=== PATIENT | male | born 1950 | race Caucasian/White ===

== ENCOUNTER 2023-12-31 10:39 | Outpatient (REF) | payer MEDICARE, SELFPAY ==
--- NOTE | ~2023-12-31 | XR_ITS ---
EXAMINATION: XR KNEE, RIGHT CLINICAL INFORMATION: Knee pain COMPARISON: None available. TECHNIQUE: Three views of the right knee. FINDINGS: Severe medial compartment arthritis, joint space loss, osteophytes, sclerosis. Arthritis to lesser degree in the lateral and patellofemoral compartments. No acute fracture or dislocation. Small suprapatellar joint fluid. No suspicious soft tissue calcification. Study presented for dictation on 01/16/2028 XR/XR knee RT 3V IMPRESSION: Tricompartment osteoarthritis. Severe medial compartment arthritis.
== END 2023-12-31 10:40 | disposition home or self-care (01) ==
LOC: HO.HOSX 10:39
PROVIDERS: Visit Provider Orthopaedic Surgery
DX: M17.11 Unilateral primary osteoarthritis, right knee (principal)
CPT/HCPCS: 73562; 99212

== ENCOUNTER 2023-12-31 11:17 | Outpatient (AMB) | payer MEDICARE, SELFPAY ==
[2023-12-31 11:31] VITALS: BMI 31.0
--- NOTE | 2023-12-31 11:31 | MHC.OFFVIS ---
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 The patient describes his pain as sharp and severe in nature. His pain has gotten worse over the last 5 years in spite of continued non operative treatments. The patient states that he was scheduled to undergo right total knee replacement surgery in 2019 but his surgery was canceled because of the COVID epidemic. He has had multiple cortisone injections as well as viscosupplementation injections. The most recent set of injections gave him minimal relief. He has tried Tylenol and anti-inflammatory medicines which gave him only mild relief. The patient has difficulty walking even short distances because of his pain. He has tried physical therapy which aggravated his pain. At this point his right knee pain is interfering with his activities of daily living and his ability to sleep well through the night. Allergies No Known Allergies Allergy (Verified 12/31/23 11:32) Medication List - Last Reconciled 12/31/23 by Compa Galaviz MD allopurinol 300 mg PO DAILY finasteride 5 mg PO DAILY losartan 75 mg PO DAILY metformin 500 mg PO BID metoprolol succinate ER 12.5 mg PO DAILY omeprazole 40 mg PO DAILY pravastatin 80 mg PO BEDTIME tamsulosin 0.4 mg PO BEDTIME Physical Exam Vital Signs: BMI result Body Mass Index 31.0 Const Other: Well-nourished well-developed very friendly male awake alert and oriented x3 in no acute distress Extrem Other: Bilateral lower extremity examination shows good capillary refill, no skin lesions noted, normal sensation light touch Right knee examination shows a minimal effusion, palpable crepitus with range of motion, pain with range of motion, range of motion from -3 degrees to 115 degrees, no instability Results Reviewed Results Reviewed: X-rays of the patient's right knee show end-stage degenerative joint disease with grade 4 [id number] arthritis in the medial compartment, subchondral sclerosis, osteophyte formation, no acute bony abnormalities Assessment & Plan Assessment & Plan (1) Osteoarthritis of right knee: Code(s): M17.11 - Unilateral primary osteoarthritis, right knee Category: Medical Plan Mr. Cormier presents with progressively worsening right knee pain due to end-stage degenerative joint disease. I had a lengthy discussion with the patient regarding the treatment options. At this point he has failed continued non operative treatments. The risks and benefits of right total knee replacement surgery were discussed at length with the patient. The patient wishes to proceed with surgery. He will be scheduled for next available date. I will see him back 1 week prior to his surgery to answer any final questions that he might have. Feel free to call me at any time should questions regarding his orthopedic management arise. I spent 20 minutes in reviewing the patient's records and imaging studies, seeing the patient and documenting in the medical record. Orders: Orders XR knee RT 3V Today M25.561 - Pain in right knee Coding Level of Care Code Est Pt Level 3 (35404) Diagnoses Osteoarthritis of right knee M17.11
== END 2023-12-31 11:57 | disposition home or self-care (01) ==
PROVIDERS: PCP Internal Medicine; Visit Provider Orthopaedic Surgery
DX: M17.11 Unilateral primary osteoarthritis, right knee (principal)
CPT/HCPCS: 99214

== ENCOUNTER 2024-01-02 11:47 | Outpatient (REF) | payer MEDICARE, SELFPAY | END 2024-01-02 11:48 | disposition home or self-care (01) | LOC: HO.HOSX 11:47 | PROVIDERS: Visit Provider Orthopaedic Surgery | DX: Z13.89 Encounter for screening for other disorder (principal) ==

== ENCOUNTER → 2024-01-14 08:46 | Outpatient (BNVA) | payer MEDICARE, SELFPAY | PROVIDERS: PCP Internal Medicine | DX: Z01.818 Encounter for other preprocedural examination (principal) ==

== ENCOUNTER 2024-01-31 | Outpatient (REF) | payer MEDICARE, SELFPAY ==
[2024-01-31 10:14] VITALS: BP 146/88; PULSE 81; RESP 18; O2SAT 97; BMI 31.0
[2024-01-31 12:10] LABS: MRSA Nasal PCR NEGATIVE (Negative); SA Nasal PCR NEGATIVE (Negative)
== END 2024-01-31 00:01 | disposition home or self-care (01) ==
LOC: HO.PAT
PROVIDERS: Physician Assistant; PCP Internal Medicine; Visit Provider Orthopaedic Surgery
DX: Z01.818 Encounter for other preprocedural examination (principal); M17.11 Unilateral primary osteoarthritis, right knee
CPT/HCPCS: 86850; 86900; 86901; 87640; 87641

== ENCOUNTER 2024-05-20 11:23 | Outpatient (AMB) | payer MEDICARE, SELFPAY ==
--- NOTE | 2024-05-20 11:46 | MHC.OFFVIS ---
Vital Signs 05/20/24 11:48 Height 5 ft 8 in Weight 200 lb BMI 30.4 Intake Visit Reasons: New Prob - left knee pain Intake Note: Bassem is a 73 year old male who presents with complaints of pain along the lateral aspect of his left knee. The patient states that he aggravated his knee recently while sitting up from his reclining chair. He pushed back with his left foot and had acute onset of pain. He has tried Tylenol and topical creams which gave him mild relief. Allergies No Known Allergies Allergy (Verified 05/20/24 11:48) Medication List - Last Reconciled 05/20/24 by Compa Galaviz MD allopurinol 300 mg PO QPM aspirin 81 mg PO QAM chlorthalidone 12.5 mg PO QAM finasteride 5 mg PO QAM losartan 75 mg PO QAM metformin ER 1,000 mg PO BID metoprolol succinate ER 25 mg PO QPM multivitamin 1 tab PO QAM omeprazole 40 mg PO QAM pravastatin 80 mg PO BEDTIME semaglutide (Ozempic) mg subcut tamsulosin 0.4 mg PO BEDTIME walker Folding front wheeled walker [facility] Medical History (Updated 05/20/24 @ 12:37 by Compa Galaviz MD) BPH (benign prostatic hyperplasia) Renal calculi Osteoarthritis Diabetes GERD (gastroesophageal reflux disease) Elevated cholesterol HTN (hypertension) Surgical History (Updated 01/31/24 @ 10:09 by Annabelle Tee RN) Hx of lithotripsy History of surgical removal of pilonidal cyst History of appendectomy Hx of right inguinal hernia repair History of esophagogastroduodenoscopy (EGD) H/O colonoscopy Social History Are you a primary critical care registered nurse to a significant other at home: No Do you presently have visiting nurse or other home services: No Comment: occasionally uses cane Patient Tobacco Use Status: Former Tobacco user Tobacco use type: Cigarette Years Smoked: 6 Physical Exam Vital Signs: BMI result Body Mass Index 30.4 Const Other: Well-nourished well-developed very friendly male awake alert and oriented x3 in no acute distress Extrem Other: Left knee examination shows full range of motion when compared to his right knee, minimal crepitus with range of motion, tenderness over his iliotibial band, mild discomfort with resisted knee flexion Assessment & Plan Assessment & Plan (1) Left knee pain: Code(s): M25.562 - Pain in left knee Category: Medical Plan Mr. Cormier presents with pain along the lateral aspect of his left knee most likely due to iliotibial band syndrome. I had a lengthy discussion with the patient regarding the treatment options. We will hold off on a cortisone injection at this time. I did give him a prescription for a Medrol Dosepak. Activity modifications were discussed at length with the patient. Will follow up with me on an as-needed basis should his symptoms not plateau at an unacceptable level over the next few months. Feel free to call me at any time should questions regarding his orthopedic management arise. I spent 21 minutes in reviewing the patient's records and imaging studies, seeing the patient and documenting in the medical record. Medications: New methylprednisolone (Medrol (Danny)) PO PER PKG DIR 21 ea 0RF Coding Level of Care Code Est Pt Level 3 (28037) Complex EM visit Add On G2211 Diagnoses Left knee pain M25.562
[2024-05-20 11:48] VITALS: BMI 30.4
== END 2024-05-20 12:34 | disposition home or self-care (01) ==
PROVIDERS: PCP Internal Medicine; Visit Provider Orthopaedic Surgery
DX: M25.562 Pain in left knee (principal)
CPT/HCPCS: 99213; G2211

== ENCOUNTER → 2024-05-20 11:23 | Outpatient (BNVA) | payer MEDICARE, SELFPAY | PROVIDERS: PCP Internal Medicine; Visit Provider Orthopaedic Surgery | DX: M25.562 Pain in left knee (principal) | CPT/HCPCS: 99212 ==

== ENCOUNTER → 2024-07-29 10:16 | Outpatient (BNVA) | payer MEDICARE, SELFPAY | PROVIDERS: PCP Internal Medicine | DX: Z01.818 Encounter for other preprocedural examination (principal) ==

== ENCOUNTER 2024-08-21 07:49 | Outpatient (AMB) | payer MEDICARE, SELFPAY ==
--- NOTE | 2024-08-21 07:54 | MHC.OFFVIS ---
Vital Signs 08/21/24 07:55 Height 5 ft 8 in Weight 200 lb BMI 30.4 Intake Visit Reasons: Pre-Op: R TKA w/ 08/25/24 Intake Note: Bassem gann a 73 yr old male who presents today with complaints of progressively worsening right knee pain. The patient describes his pain as sharp and severe in nature. His pain has gotten worse over the last 5 years in spite of continued non operative treatments. The patient states that he was scheduled to undergo right total knee replacement surgery in 2019 but his surgery was canceled because of the COVID epidemic. He has had multiple cortisone injections as well as viscosupplementation injections. The most recent set of injections gave him minimal relief. He has tried Tylenol and anti-inflammatory medicines which gave him only mild relief. The patient has difficulty walking even short distances because of his pain. He has tried physical therapy which aggravated his pain. At this point his right knee pain is interfering with his activities of daily living and his ability to sleep well through the night. Allergies No Known Allergies Allergy (Verified 08/21/24 07:54) Medication List - Last Reconciled 08/21/24 by Compa Galaviz MD allopurinol 300 mg PO QPM aspirin 81 mg PO QAM chlorthalidone 12.5 mg PO QAM finasteride 5 mg PO QAM losartan 75 mg PO QAM metformin ER 1,000 mg PO BID metoprolol succinate ER 25 mg PO QPM multivitamin 1 tab PO QAM omeprazole 40 mg PO QAM pravastatin 80 mg PO BEDTIME semaglutide (Ozempic) 2 mg subcut QWEEK tamsulosin 0.4 mg PO BEDTIME walker Folding front wheeled walker walker Folding front wheeled walker [facility] Medical History Schatzki ring of distal esophagus NAFLD (nonalcoholic fatty liver disease) BPH (benign prostatic hyperplasia) Renal calculi Osteoarthritis Diabetes GERD (gastroesophageal reflux disease) Elevated cholesterol HTN (hypertension) Surgical History (Updated 01/31/24 @ 10:09 by Annabelle Tee RN) Hx of lithotripsy History of surgical removal of pilonidal cyst History of appendectomy Hx of right inguinal hernia repair History of esophagogastroduodenoscopy (EGD) H/O colonoscopy Social History Are you a primary animal care specialist to a significant other at home: No Do you presently have visiting nurse or other home services: No Comment: aware of trip hazard Patient Tobacco Use Status: Former Tobacco user Tobacco use type: Cigarette Years Smoked: 6 Physical Exam Vital Signs: BMI result Body Mass Index 30.4 Const Other: Well-nourished well-developed very friendly male awake alert and oriented x3 in no acute distress Extrem Other: Bilateral lower extremity examination shows good capillary refill, no skin lesions noted, normal sensation light touch Right knee examination shows a minimal effusion, palpable crepitus with range of motion, pain with range of motion, range of motion from -3 degrees to 115 degrees, no instability Results Reviewed Results Reviewed: X-rays of the patient's right knee show end-stage degenerative joint disease with grade 4 [id number] arthritis, subchondral sclerosis, no acute bony abnormalities Assessment & Plan Assessment & Plan (1) Osteoarthritis of right knee: Code(s): M17.11 - Unilateral primary osteoarthritis, right knee Category: Medical Plan Mr. Cormier presents with progressively worsening right knee pain due to end-stage degenerative joint disease. At this point the patient has failed continued non operative treatments. The risks and benefits of right total knee replacement surgery were discussed at length with the patient. The patient wishes to proceed with surgery. sales representative facility services will be consulted following his surgery for home physical therapy and nursing. The patient will follow-up as instructed. Feel free to call me at any time should questions regarding his orthopedic management arise. I spent 20 minutes in reviewing the patient's records and imaging studies, seeing the patient and documenting in the medical record. Coding Level of Care Code Est Pt Level 3 (30918) Complex EM visit Add On G2211 Diagnoses Osteoarthritis of right knee M17.11
[2024-08-21 07:55] VITALS: BMI 30.4
== END 2024-08-21 08:20 | disposition home or self-care (01) ==
PROVIDERS: PCP Internal Medicine; Visit Provider Orthopaedic Surgery
DX: M17.11 Unilateral primary osteoarthritis, right knee (principal)
CPT/HCPCS: 99213

== ENCOUNTER 2024-08-21 07:49 | Outpatient (REF) | payer MEDICARE, SELFPAY ==
--- OUTSIDE RECORDS SUMMARY | 2024-08-21 09:07 | XMS_ITS | Clinical Summary ---
Author Organization [address] Address [address] [place] [phone] Phone Care Team Providers Care Imaging Technologist Name Role Phone Oscar Quinn DO Primary Care Provider [phone] Surgical History Surgery Date Site/Laterality Comments APPENDECTOMY PROCEDURE:APPENDECTOMY HERNIA REPAIR PROCEDURE:HERNIA REPAIR PILONIDAL CYST DRAINAGE PROCEDURE:PILONIDAL CYST DRAINAGE NEPHROSTOMY PROCEDURE:NEPHROSTOMY LITHOTRIPSY PROCEDURE:LITHOTRIPSY Medical History Medical History Date Comments Hypertension DX:Hypertension Family History Medical History Relation Name Comments Heart disease Father Hypertension Father Cancer Mother Relation Name Status Comments Father Mother Social History Tobacco Use Types Packs/Day Years Used Date Smoking Tobacco: Never Assessed Sex and Gender Information Value Date Recorded Sex Assigned at Not on file Legal Sex Male 1:25 AM EST Gender Identity Not on file Sexual Orientation Not on file Obstetrics History Plan of Treatment Health Maintenance Due Date Last Done Comments DTaP,Tdap,and Td Vaccines (1 - Tdap) 1971 Pneumococcal Vaccine: 50+ Years (1 of 2 - PCV) 1971 Zoster Vaccines (1 of 2) 2002 Colorectal Cancer Screening: Colonoscopy 05/28/2022 Depression Screening 05/28/2022 Falls Risk Assessment 05/28/2022 Hepatitis C Screening 05/28/2022 Medicare Annual Wellness Visit 05/28/2022 Social Influencers of Health Screening 05/28/2022 COVID-19 Vaccine (3 - 2023-2 5 season) 2024 04/03/2022, 04/18/2021 Hypertension/CHF/CAD Annual BMP Blood Test 07/28/2025 07/28/2024, 05/12/2024 RSV Immunization Patients 60 + Years Old (1 - 1-dose 75+ series) 2027 Cholesterol Screening (Lipid Panel) 05/12/2029 05/12/2024 Influenza Vaccine Completed 03/12/2024, 07/12/2023, 04/17/2022 HIB Vaccines Aged Out No longer eligi ble based on patient's age to complete this topic HPV Vaccines Aged Out No longer eligi ble based on patient's age to complete this topic Hepatitis A Vaccines Aged Out No long er eligible based on patient's age to complete this topic Hepatitis B Vaccines Aged Out No long er eligible based on patient's age to complete this topic IPV Vaccines Aged Out No longer eligi ble based on patient's age to complete this topic MMR Vaccines Aged Out No longer eligi ble based on patient's age to complete this topic Meningococcal ACWY Vaccine Aged Out N o longer eligible based on patient's age to complete this topic Meningococcal B Vacine Aged Out No lo nger eligible based on patient's age to complete this topic RSV Immunization Patients Under 20 months Aged Out No longer eligible b ased on patient's age to complete this topic Varicella Vaccines Aged Out No longer eligible based on patient's age to complete this topic Procedures Procedure Name Priority Date/Time Associated Diagnosis Comments CBC WITH AUTO DIFFERENTIAL Routine 07/28/2024 11:39 AM EST Pre-op evaluation History of total knee arthroplasty, right PROTHROMBIN TIME WITH INR Routine 07/28/2024 11:39 AM EST Pre-op evaluation History of total knee arthroplasty, right HEMOGLOBIN A1C Routine 07/28/2024 11:39 AM EST Pre-op evaluation History of total knee arthroplasty, right Abnormal finding of blood chemistry, unspecified COMPREHENSIVE METABOLIC PANEL Routine 07/28/2024 11:39 AM EST Pre-op evaluation History of total knee arthroplasty, right CBC AND DIFFERENTIAL Routine 07/28/2024 11:39 AM EST Pre-op evaluation History of total knee arthroplasty, right LIPID PANEL WITH REFLEX TO DIRECT LDL Routine 05/12/2024 8:45 AM EST Laboratory tests ordered as part of a complete physical exam (CPE) HTN (hypertension) DM (diabetes mellitus) (CMS/HCC) HLD (hyperlipidemia) from Last 3 Months or Most Recently Relevant to Health Maintenance Results * (ABNORMAL) CBC auto differential (07/28/2024 11:39 AM EST) [facility] WBC 10.5 4.8 - 10.8 K/mcL LAB HEMETOLOGY METHOD 07/28/2024 2:44 PM [facility] RBC 4.20(L) 4.50 - 5.50 M/mcL LAB HEMETOLOGY METHOD 07/28/2024 2:44 PM [facility] Hemoglobin 13.8 13.5 - 17.5 g/dL LAB HEMETOLOGY METHOD 07/28/2024 2:44 PM [facility] Hematocrit 41.4(L) 42.0 - 54.0 % LAB HEMETOLOGY METHOD 07/28/2024 2:44 PM [facility] MCV 99.0(H) 79.0 - 98.0 FL LAB HEMETOLOGY METHOD 07/28/2024 2:44 PM [facility] MCH 33.0(H) 27.0 - 32.0 pcg LAB HEMETOLOGY METHOD 07/28/2024 2:44 PM [facility] MCHC 33.3 32.0 - 37.0 g/dL LAB HEMETOLOGY METHOD 07/28/2024 2:44 PM [facility] RDW 13.0 11.0 - 15.0 % LAB HEMETOLOGY METHOD 07/28/2024 2:44 PM [facility] Platelets 241 130 - 400 K/mcL LAB HEMETOLOGY METHOD 07/28/2024 2:44 PM [facility] MPV 9.3 7.0 - 11.0 FL LAB HEMETOLOGY METHOD 07/28/2024 2:44 PM [facility] NRBC 0.0 <1.0 % LAB HEMETOLOGY METHOD 07/28/2024 2:44 PM [facility] NRBC Absolute 0.00 <0.10 K/mcL LAB HEMETOLOGY METHOD 07/28/2024 2:44 PM [facility] Neutrophils Relative 71.8 % LAB HEMETOLOGY METHOD 07/28/2024 2:44 PM [facility] Lymphocytes Relative 19.9 % LAB HEMETOLOGY METHOD 07/28/2024 2:44 PM [facility] Monocytes Relative 7.2 % LAB HEMETOLOGY METHOD 07/28/2024 2:44 PM [facility] Eosinophils Relative 0.4 % LAB HEMETOLOGY METHOD 07/28/2024 2:44 PM [facility] Basophils Relative 0.2 % LAB HEMETOLOGY METHOD 07/28/2024 2:44 PM [facility] Immature Granulocytes Relative 0.5 % LAB HEMETOLOGY METHOD 07/28/2024 2:44 PM [facility] Neutrophils Absolute 7.53(H) 1.50 - 7.00 K/mcL LAB HEMETOLOGY METHOD 07/28/2024 2:44 PM [facility] Lymphocytes Absolute 2.09 1.00 - 5.00 K/mcL LAB HEMETOLOGY METHOD 07/28/2024 2:44 PM [facility] Monocytes Absolute 0.76 0.20 - 1.00 K/mcL LAB HEMETOLOGY METHOD 07/28/2024 2:44 PM [facility] Eosinophils Absolute 0.04 0.00 - 0.50 K/mcL LAB HEMETOLOGY METHOD 07/28/2024 2:44 PM [facility] Basophils Absolute 0.02 0.00 - 0.20 K/[facility] LAB HEMETOLOGY METHOD 07/28/2024 2:44 PM EST [facility] Immature Granulocytes Absolute 0.05(H) 0.00 - 0.03 K/[facility] LAB HEMETOLOGY METHOD 07/28/2024 2:44 PM [facility] Blood Venous blood specimen / Unknown Venipuncture / Unknown 07/28/2024 11:39 AM EST 07/28/2024 11:39 AM EST [employer] LAB BLOOD ORDERABLES Final Resul t Performing Organization Address [facility]/ZIP Co de Phone Number [facility] [address] [place] [address], [place] [phone] * (ABNORMAL) Prothrombin time with INR (07/28/2024 11:39 AM EST) Pathologist [facility] Protime 9.8(L) 10.6 - 13.9 sec LAB COAGULATION METHOD 07/28/2024 2:53 PM [facility] INR 0.8 LAB COAGULATION METHOD 07/28/2024 2:53 PM [facility] Blood Venous blood specimen / Unknown Venipuncture / Unknown 07/28/2024 11:39 AM EST 07/28/2024 11:39 AM EST [employer] LAB BLOOD ORDERABLES Final Resul t Performing Organization Address City/[facility]/ZIP Co de Phone Number [facility] [address] [place] [address], [place] [phone] * (ABNORMAL) Hemoglobin A1c (07/28/2024 11:39 AM EST) Pathologist [facility] Hemoglobin A1C 7.2(H) <6.5 % LAB CHEMISTRY METHOD 07/28/2024 9:47 PM EST [facility] Mean Bld Glu Estim. 160 mg/dL LAB CHEMISTRY METHOD 07/28/2024 9:47 PM [facility] Blood Venous blood specimen / Unknown Venipuncture / Unknown 07/28/2024 11:39 AM EST 07/28/2024 11:39 AM EST us [employer] [employer] LAB BLOOD ORDERABLES Final Resul t [facility] [address] [place] [address], * (ABNORMAL) Comprehensive metabolic panel (07/28/2024 11:39 AM EST) Sodium 137 133 - 145 mmol/L LAB CHEMISTRY METHOD 07/28/2024 5:21 PM [facility] Potassium 4.1 3.5 - 5.5 mmol/L LAB CHEMISTRY METHOD 07/28/2024 5:21 PM [facility] Chloride 103 96 - 110 mmol/L LAB CHEMISTRY METHOD 07/28/2024 5:21 PM [facility] CO2 26 21 - 32 mmol/L LAB CHEMISTRY METHOD 07/28/2024 5:21 PM [facility] Anion Gap 8 3 - 11 LAB CHEMISTRY METHOD 07/28/2024 5:21 PM [facility] Glucose 179(H) 70 - 100 mg/dL LAB CHEMISTRY METHOD 07/28/2024 5:21 PM [facility] BUN 29(H) 5 - 25 mg/dL LAB CHEMISTRY METHOD 07/28/2024 5:21 PM [facility] Creatinine 1.47(H) 0.70 - 1.30 mg/dL LAB CHEMISTRY METHOD 07/28/2024 5:21 PM [facility] eGFR 50(L) >=60 mL/min/1. 73m2 LAB CHEMISTRY METHOD 07/28/2024 5:21 PM [facility] Comment:Calculation based on the??Chronic Kidney Disease Epidemiology Collaboration (CKD-EPI) equation refit??without adjustment for race. BUN/Creatinine Ratio 19.7 LAB CHEMISTRY METHOD 07/28/2024 5:21 PM [facility] Calcium 10.3 8.5 - 10.5 mg/dL LAB CHEMISTRY METHOD 07/28/2024 5:21 PM [facility] AST (SGOT) 15 10 - 42 unit/L LAB CHEMISTRY METHOD 07/28/2024 5:21 PM [facility] ALT (SGPT) 29 10 - 60 unit/L LAB CHEMISTRY METHOD 07/28/2024 5:21 PM [facility] Alkaline Phosphatase 70 42 - 121 unit/L LAB CHEMISTRY METHOD 07/28/2024 5:21 PM [facility] Total Protein 6.9 6.0 - 8.0 g/dL LAB CHEMISTRY METHOD 07/28/2024 5:21 PM [facility] Albumin 4.2 3.2 - 5.0 g/dL LAB CHEMISTRY METHOD 07/28/2024 5:21 PM [facility] Total Bilirubin 0.7 0.0 - 1.4 mg/dL LAB CHEMISTRY METHOD 07/28/2024 5:21 PM [facility] Blood Venous blood specimen / Unknown Venipuncture / Unknown 07/28/2024 11:39 AM EST 07/28/2024 11:39 AM EST [facility] [employer] LAB BLOOD ORDERABLES Final Resul t [facility] [address] [place] [address], * (ABNORMAL) Lipid panel with reflex to direct LDL (05/12/2024 8:45 AM EST) Cholesterol 146 0 - 200 mg/dL LAB CHEMISTRY METHOD 05/12/2024 12:38 PM [facility] Triglycerides 241(H) 0 - 150 mg/dL LAB CHEMISTRY METHOD 05/12/2024 12:38 PM [facility] HDL 51 >=40 mg/dL LAB CHEMISTRY METHOD 05/12/2024 12:38 PM [facility] LDL Calculated 47 0 - 100 mg/dL LAB CHEMISTRY METHOD 05/12/2024 12:38 PM [facility] VLDL Cholesterol Lg 48.2 mg/dL LAB CHEMISTRY METHOD 05/12/2024 12:38 PM [facility] Non HDL Chol. (LDL+VLDL) 95 <145 mg/dL LAB CHEMISTRY METHOD 05/12/2024 12:38 PM [facility] Chol/HDL Ratio 2.9 0.0 - 4.4 LAB CHEMISTRY METHOD 05/12/2024 12:38 PM [facility] Blood Venous blood specimen / Unknown Venipuncture / Unknown 05/12/2024 8:45 AM EST 05/12/2024 8:45 AM EST Oscar Quinn DO LAB BLOOD ORDERABLES Final Re sult [facility]) [facility] [address] [place] [address], from Last 3 Months or Most Recently Relevant to Health Maintenance Insurance MEDICARE Care Teams Imaging Technologist Relationship Specialty Start Date End Date Oscar Quinn DO [address] [place] [phone] PCP - General Internal Medicine 10/01/18
--- OUTSIDE RECORDS SUMMARY | 2024-08-21 09:07 | XMS_ITS | Clinical Summary ---
Author Organization [facility] Address [address] [place] [address] Care Team Providers Care Office Asst Name Role Phone Oscar Quinn DO Primary Care Provider [phone] Allergies No known active allergies Medications Medication Sig Dispensed Refills Start Date End Date Status amLODIPine (NORVASC) tablet 10 mg 0 10/03/2018 Active finasteride (PROSCAR) 5 MG tablet 0 10/23/2018 Active losartan (COZAAR) tablet 25 mg 0 10/03/2018 Active metoprolol succinate (TOPROL-XL) 24 hr tablet 25 mg 0 10/03/2018 Active pravastatin (PRAVACHOL) tablet 80 mg 0 10/23/2018 Active tamsulosin (FLOMAX) 0.4 MG CAPS 0 10/23/2018 Active PEG 9162-WXt-VbXhp-NaCl-NaSulf (PEG 3350/ELECTROLYTES) 240 g SOLR 0 10/09/2018 Active Active Problems Problem Noted Date Diagnosed Date Shoulder impingement, right 05/13/2019 Lateral epicondylitis of right elbow 01/14/2019 Primary osteoarthritis of right knee 12/24/2018 Chronic pain of right knee 12/24/2018 Family History Medical History Relation Name Comments Heart disease Father Hypertension Father Cancer Mother Relation Name Status Comments Father Mother Social History Tobacco Use Types Packs/Day Years Used Date Smoking Tobacco: Never Assessed Sex and Gender Information Value Date Recorded Sex Assigned at Not on file Gender Identity Not on file Sexual Orientation Not on file Job Start Date Occupation Industry Not on file Not on file Not on file Last Filed Vital Signs Vital Sign Reading Time Taken Comments Blood Pressure - - Pulse - - Temperature - - Respiratory Rate - - Oxygen Saturation - - Inhaled Oxygen Concentration - - Weight 95.3 kg (210 lb) 01/14/2019 10:38 AM EDT Height 172.7 cm (5' 8 ) 01/14/2019 10:38 AM EDT Body Mass Index 31.93 01/14/2019 10:38 AM EDT Plan of Treatment Health Maintenance Due Date Last Done Comments Hepatitis C Screening 1952 COVID-19 Vaccine (#1) 01[birth year]11/1951 Depression Screening 1964 BMI Counseling 1970 Preventative Health Evaluation 1970 DTap / Tdap / Td (1 - Tdap) 1971 Colon Cancer Screening (Colonoscopy) 1997 Shingrix-Zoster Vaccine (1 of 2) 2002 Fall Risk Assessment 2017 Pneumococcal Vaccine (1 of 1 - PCV) 2017 Influenza Vaccine (#1) 2024 RSV Adult > 60+ Yrs or Pregn ant (1 - 1-dose 75+ series) 2027 Hepatitis B Vaccines Aged Out No long er eligible based on patient's age to complete this topic RSV Ped < 20 months Aged Out No longe r eligible based on patient's age to complete this topic Care Teams Office Asst Relationship Specialty Start Date End Date Oscar Quinn DO [address] [place] [address] [address] [place] [address] PCP - General Internal Medicine 10/01/18
--- OUTSIDE RECORDS SUMMARY | 2024-08-21 09:07 | XMS_ITS | Clinical Summary ---
Author Organization [facility] Address [address] [phone] Phone Care Team Providers Care Brown Stock Washer Name Role Phone Oscar Quinn DO Primary Care Provider [phone] Allergies No known active allergies Medications Aspirin Buf,CaCarb-MgCa rb-MgO, 81 MG tablet Take 1 tablet by mouth 1 (one) time each day Active Cholecalciferol (Vitamin D3) 25 MCG (1000 UT) capsule Take 25 mcg by mouth 2 Active Multiple Vitamin (MULTIVITAMIN ADULT PO) Daily, 0 Refills, Maintenance, 04/12/22 11:37:00 EDT, Partial fill upon patient request if the prescription is for a schedule II opioid drug. 2 Active tamsulosin (FLOMAX) 0.4 MG 24 hr capsule Take 0.4 mg by mouth 9 Active metFORMIN XR (GLUCOPHAGE-XR) 750 MG 24 hr tablet 3 Active pravastatin (PRAVACHOL) 80 MG tablet 3 Active metoprolol succinate XL (TOPROL XL) 25 MG 24 hr tablet 3 Active finasteride (PROSCAR) 5 MG tablet 3 Active chlorthalidone 25 MG tablet Take 0.5 tablets (12.5 mg total) by mouth 1 (one) time each day 45 tablet 3 3 Active losartan (Cozaar) 25 MG tablet Take 3 tablets (75 mg total) by mouth 1 (one) time each day 270 tablet 3 4 11/14/19 25 Active Active Problems Problem Noted Date Diagnosed Date Chronic kidney disease, stage 2 (mild) 3 Essential (primary) hypertension 02/12/2023 Blood in urine 02/09/2023 02/09/2023 Nocturia 02/09/2023 02/09/2023 Obese class I 02/09/2023 02/09/2023 Renal stone 02/09/2023 02/09/2023 Disorder of shoulder 05/13/2019 02/09/2023 Lateral epicondylitis of right elbow 01/14/2019 02/09/2023 Pain of knee region 12/24/2018 02/09/2023 Primary osteoarthritis of right knee 12/24/2018 02/09/2023 Family History Medical History Relation Comments Heart disease Father Hypertension Father Cancer Mother colorectal Relation Status Comments Father Unknown Mother Social History Tobacco Use Types Packs/Day Years Used Date Smoking Tobacco: Former Comments:Smoking History Inf o:Every day Alcohol Use Standard Drinks/Week Comments No 0 (1 standard drink = 0.6 oz pur e alcohol) Sex and Gender Information Value Date Recorded Sex Assigned at Not on file Legal Sex Male 4:51 PM EST Gender Identity Not on file Sexual Orientation Not on file Last Filed Vital Signs Vital Sign Reading Time Taken Comments Blood Pressure 156/70 05/14/2024 2:30 PM EST Pulse 101 05/14/2024 2:30 PM EST Temperature - - Respiratory Rate - - Oxygen Saturation 98% 11/14/2023 12:58 PM EDT Inhaled Oxygen Concentration - - Weight 91.4 kg (201 lb 6.4 oz) 05/14/2024 2:30 P M EST Height - - Body Mass Index - - Plan of Treatment Upcoming Encounters Date Type Department Care Team (Late st Contact Info) Description 11/10/2024 2:00 PM EDT Office Visit [facility] [address] [phone] Pancho Mars MD [address] [phone] Health Maintenance Due Date Last Done Comments Pneumococcal Vaccine: 65+ Ye ars (1 of 2 - PCV) 1958 Colorectal Cancer Screening: Annual FOBT 2001 Colorectal Cancer Screening: Colonoscopy 2001 Colorectal Cancer Screening: Sigmoidoscopy 2001 Influenza Vaccine (#1) 2024 Hepatitis B Vaccine Aged Out No longe r eligible based on patient's age to complete this topic Procedures Procedure Name Priority Date/Time Associated Diagnosis Comments LITHOLINK KIDNEY STONE URINE PANEL Routine 06/16/2024 9:05 AM EST Chronic kidney disease, not otherwise specified Renal stone from Last 3 Months Results * (ABNORMAL) Litholink Kidney Stone Urine Panel, 24 Hour (06/16/2024 9:05 AM EST) Cystine, Ur CANCELED [facility] Comment: Test not performed. Previous test results on file. Result canceled by the ancillary. Urine Volume (Preservative) 1,390 500 - 4,000 mL/24 hr [facility] Calcium Oxalate 9.97 6.00 - 10.00 [facility] Calcium, 24H Urine 144 <250 mg/24 hr [facility] Oxalate, 24H Ur 49(H) 20 - 40 mg/24 hr [facility] Citrate, 24H Ur 449(L) >450 mg/24 hr [facility] Calcium Phosphate Saturation 0.14(L) 0.50 - 2.00 [facility] pH, 24 Hr Urine 5.170(L) 5.800 - 6.200 [facility] Uric Acid Saturation 2.05(H) <1.00 [facility] Uric Acid, 24H Ur 433 <800 mg/24 hr [facility] Comment:The urine UA result was verified by repeat analysis. Sodium, 24H Ur 233(H) 50 - 150 mmol/24 hr [facility] Potassium, 24H Ur 34 20 - 100 mmol/24 hr [facility] Magnesium, 24H Ur 68 30 - 120 mg/24 hr [facility] Phosphorus 24 Hour Urine 619 600 - 1,200 mg/24 hr [facility] Comment:The urine P result w as verified by repeat analysis. Ammonia, 24 hr Urine 34 15 - 60 mmol/24 hr [facility] Chloride, 24H Ur 256(H) 70 - 250 mmol/24 hr [facility] Sulfate, 24H Ur 17(L) 20 - 80 meq/24 hr [facility] Urea Nitrogen, 24H Ur 8.76 6.00 - 14.00 g/24 hr [facility] Protein Catabolic Rate, (14) 0.8 0.8 - 1.4 g/kg/24 hr [facility] Creatinine in 24 hour Urine 1,381 Not Applic. mg/24 hr [facility] Creatinine/KG Body Weight 15.2 11.9 - 24.4 mg/24 hr/kg [facility] Calcium/KG Body Weight 1.6 <4.0 mg/24 hr/kg [facility] Calcium/Creat.R atio 104 34 - 196 mg/g creat [facility] Comment Note [facility] PDF . [facility] Urine (Urine) 06/16/2024 9:0 5 AM EST 06/20/2024 us Pancho Mars MD LAB URINE ORDERABLES Edited Resu lt - Final [facility] [address] [place] [phone] from Last 3 Months Insurance MEDICARE [facility] MEDICARE [facility] Care Teams Brown Stock Washer Relationship Specialty Start Date End Date Oscar Quinn DO [address] [place] [address] [place] PCP - General 07/05/20
== END 2024-08-21 07:50 | disposition home or self-care (01) ==
LOC: HO.LAB 07:49
PROVIDERS: PCP Internal Medicine; Visit Provider Orthopaedic Surgery
DX: Z01.818 Encounter for other preprocedural examination (principal); M17.11 Unilateral primary osteoarthritis, right knee
CPT/HCPCS: 99212

== ENCOUNTER 2024-08-25 06:53 | Day surgery (SDC) | payer MEDICARE, SELFPAY ==
[2024-07-28 10:05] VITALS: BP 155/91; PULSE 65; RESP 20; O2SAT 97; BMI 31.2
--- NOTE | 2024-07-28 10:17 | P.CONAN_ITS ---
Documented by User: Jerica Cool NP 08/21/24 14:23 HPI - Anesthesia Eval Consult details Narrative: 74yo M for Right Knee Replacement Total, 08/25/24 Medically optimized per PCP No recent illness No CP/SOB within limits of knee pain Anesthesia Pre-Procedure Meds Is the patient on any of the following meds?: GLP1/DPP4 PMFSH Active Problems Active Problems: All Active Problems Pre-op evaluation (Acute) Left knee pain (Acute) Osteoarthritis of right knee (Acute) Right knee pain (Acute) Past Medical History Medical History Schatzki ring of distal esophagus NAFLD (nonalcoholic fatty liver disease) BPH (benign prostatic hyperplasia) Renal calculi Osteoarthritis Diabetes GERD (gastroesophageal reflux disease) Elevated cholesterol HTN (hypertension) Family History Family history of problems with anesthesia: No Surgical History Surgical History Hx of lithotripsy History of surgical removal of pilonidal cyst History of appendectomy Hx of right inguinal hernia repair History of esophagogastroduodenoscopy (EGD) H/O colonoscopy History of Problems with Anesthesia: No Social History Social History Are you a primary care program resident to a significant other at home: No Do you presently have visiting nurse or other home services: No Comment: aware of trip hazard Patient Tobacco Use Status: Former Tobacco user Tobacco use type: Cigarette Years Smoked: 6 Use of substances other than those prescribed or required for medical reasons: No Have you been hit, kicked, punched, or otherwise hurt by someone within the past year? If so, by whom?: No Spiritual Healthcare Practices: none Jehovah'S Witness Healthcare Practices: Yazidi Cultural Healthcare Practices: none Are you DNR?: No Advance Directives Information Provided: Yes (as above noted-no copies here- advised to bring if has) Advance Directives on File: No Recently lost weight without trying: No Eating poorly because of decreased appetite: No Nutrition Risks: No Nutritional Risk Poor oral hygiene: No (one broken tooth/has one crown) Meds Allergies Allergy/AdvReac Type Severity Reaction Status Date / Time No Known Allergies Allergy Verified 08/25/24 07:09 Home Medications ?Medication ?Instructions ?Recorded ?Confirmed ?Last Taken ?Type allopurinol 300 mg tablet 300 mg PO QPM 12/31/23 08/21/24 Unknown History finasteride 5 mg tablet 5 mg PO QAM 12/31/23 08/21/24 Unknown History losartan 50 mg tablet 75 mg PO QAM 12/31/23 08/21/24 Unknown History omeprazole 40 mg capsule,delayed 40 mg PO QAM 12/31/23 08/21/24 08/25/24 History release pravastatin 80 mg tablet 80 mg PO BEDTIME 12/31/23 08/21/24 Unknown History tamsulosin 0.4 mg capsule 0.4 mg PO BEDTIME 12/31/23 08/21/24 Unknown History metformin 1,000 mg tablet,extended 1,000 mg PO BID 01/14/24 08/21/24 Unknown History release 24hr (osmotic) metoprolol succinate 25 mg 25 mg PO QPM 01/14/24 08/21/24 Unknown History tablet,extended release 24 hr aspirin 81 mg tablet,delayed 81 mg PO QAM 01/31/24 08/21/24 08/18/24 History release chlorthalidone 25 mg tablet 12.5 mg PO QAM 01/31/24 08/21/24 Unknown History multivitamin 1 tab PO QAM 01/31/24 08/21/24 Unknown History semaglutide 0.25 mg or 0.5 mg (2 2 mg subcut QWEEK 05/20/24 08/21/24 08/18/24 History mg/3 mL) subcutaneous pen injector (Ozempic) Exam Height,Weight and Vital Signs: Height 5 ft 8 in Weight 92.986 kg Last Vital Signs Pulse 65 07/28/24 10:05 Resp 20 07/28/24 10:05 BP 155/91 H 07/28/24 10:05 Pulse Ox 97 07/28/24 10:05 O2 Del Method Room Air 07/28/24 10:05 Pertinent Lab Results Pertinent Lab Results: CBC, BMP, A1C, INR 07/2024 from outside facility [place] Narrative Narrative: EKG 06/2024 NSR @ 76 Airway Mallampati Class: III TM Dist: >3cm Neck ROM: Full Loose/Missing/Broken Teeth: Yes (right lower side broken) Heart: RRR Lungs: CTAB Assessment and Plan Assessment Anesthesia Assessment: Anesthesia Plan Discussed and PAT Visit Final Anesthetic Review Family History of Problems with Anesthesia: No History of Problems with Anesthesia: No Documented by User: Ivet Blanco MD 08/25/24 08:00 HPI - Anesthesia Eval Anesthesia Pre-Procedure Meds If yes to any meds - educate patient: Pt education - increased risk of aspiration and/or euvolemic DKA PMFSH Past Medical History Medical History Schatzki ring of distal esophagus NAFLD (nonalcoholic fatty liver disease) BPH (benign prostatic hyperplasia) Renal calculi Osteoarthritis Diabetes GERD (gastroesophageal reflux disease) Elevated cholesterol HTN (hypertension) Surgical History Surgical History Hx of lithotripsy History of surgical removal of pilonidal cyst History of appendectomy Hx of right inguinal hernia repair History of esophagogastroduodenoscopy (EGD) H/O colonoscopy Social History Social History Are you a primary care program resident to a significant other at home: No Do you presently have visiting nurse or other home services: No Comment: aware of trip hazard Patient Tobacco Use Status: Former Tobacco user Tobacco use type: Cigarette Years Smoked: 6 Use of substances other than those prescribed or required for medical reasons: No Have you been hit, kicked, punched, or otherwise hurt by someone within the past year? If so, by whom?: No Spiritual Healthcare Practices: none Jehovah'S Witness Healthcare Practices: Yazidi Cultural Healthcare Practices: none Are you DNR?: No Advance Directives Information Provided: Yes (as above noted-no copies here- advised to bring if has) Advance Directives on File: No Recently lost weight without trying: No Eating poorly because of decreased appetite: No Nutrition Risks: No Nutritional Risk Poor oral hygiene: No (one broken tooth/has one crown) Meds Allergies Allergy/AdvReac Type Severity Reaction Status Date / Time No Known Allergies Allergy Verified 08/25/24 07:09 Home Medications ?Medication ?Instructions ?Recorded ?Confirmed ?Last Taken ?Type allopurinol 300 mg tablet 300 mg PO QPM 12/31/23 08/21/24 Unknown History finasteride 5 mg tablet 5 mg PO QAM 12/31/23 08/21/24 Unknown History losartan 50 mg tablet 75 mg PO QAM 12/31/23 08/21/24 Unknown History omeprazole 40 mg capsule,delayed 40 mg PO QAM 12/31/23 08/21/24 08/25/24 History release pravastatin 80 mg tablet 80 mg PO BEDTIME 12/31/23 08/21/24 Unknown History tamsulosin 0.4 mg capsule 0.4 mg PO BEDTIME 12/31/23 08/21/24 Unknown History metformin 1,000 mg tablet,extended 1,000 mg PO BID 01/14/24 08/21/24 Unknown History release 24hr (osmotic) metoprolol succinate 25 mg 25 mg PO QPM 01/14/24 08/21/24 Unknown History tablet,extended release 24 hr aspirin 81 mg tablet,delayed 81 mg PO QAM 01/31/24 08/21/24 08/18/24 History release chlorthalidone 25 mg tablet 12.5 mg PO QAM 01/31/24 08/21/24 Unknown History multivitamin 1 tab PO QAM 01/31/24 08/21/24 Unknown History semaglutide 0.25 mg or 0.5 mg (2 2 mg subcut QWEEK 05/20/24 08/21/24 08/18/24 History mg/3 mL) subcutaneous pen injector (Ozempic) Assessment and Plan Assessment Anesthesia Assessment: Chart Reviewed Final Anesthetic Review NPO: Yes ASA Class: III Final Preanesthetic Review: No Changes in Pt Med Stat, Meds/Allgs Chart Reviewed, Consent Obtained/Reviewed and Anes Risks/Benef Reviewed Patient Risk: Intermediate Anesthetic Plan Anesthetic Plan: MAC:, Spinal and Regional Block Disposition: Standard PACU
[2024-07-28 13:05] LABS: MRSA Nasal PCR NEGATIVE (Negative); SA Nasal PCR NEGATIVE (Negative)
[2024-08-25] VITALS (10 sets, daily range): BP systolic 103–137; BP diastolic 67–96; PULSE 68–109; RESP 15–20; TEMP 36–36.8; O2SAT 93–97; BMI 29.5
[2024-08-25] MEDS: Lactated Ringers 1,000 ML 100 ML IVCONT ×2 (07:19→14:26)
[2024-08-25 07:27] LABS: Glucose, Whole Blood 232 mg/dL (60-115)
[2024-08-25] MEDS: vancomycin HCL 1,500 MG in 0.9 % Sodium Chloride 500 ML 333.33 MG IV ×2 (08:09→20:15)
[2024-08-25] MEDS: ceFAZolin Sodium/Dextrose,Iso 2 GM/50 ML PIGGYBACK IV (09:20)
[2024-08-25] MEDS: Acetaminophen 1,000 MG/100 ML PIGGYBACK 400 MG IV (10:00)
--- NOTE | 2024-08-25 11:55 | PM.OP ---
Brief Operative Note Date of Service: 08/25/24 Pre-op diagnosis: Right knee degenerative joint disease Post-op diagnosis: same Procedure: Right total knee arthroplasty Implants: [employer] Triathlon cemented posterior stabilized total knee arthroplasty with a femoral component size 6 right, tibial component size 6, polyethylene liner size 6 with 9 mm of thickness, an asymmetric patellar component size 29 with 9 mm of thickness Surgeon: Compa Galaviz MD Anesthesia: regional and spinal Was an Geodetic Survey Director used for this Procedure?: No Geodetic Survey Director: Omaira Lind Estimated blood loss (mL): 200 Pathology: other (Bony fragments from the right femur, tibia and patella) Condition: stable Disposition: PACU
--- NOTE | 2024-08-25 11:57 | P.OP_ITS ---
Operative Note Operative Note Date of Service: 08/25/24 Narrative: After the patient was identified as Bassem Cormier and his right knee was initialed by myself the patient was brought to the holding area where a right leg nerve block was performed by the anesthesiologist in routine fashion. The patient was then brought to the operating room where conscious sedation and spinal anesthesia were performed by the anesthesiologist in routine fashion. Because of the patient's diabetes he was given both IV Ancef and IV vancomycin preoperatively for infection prophylaxis. The patient's right lower extremity was prepped and draped in sterile fashion. A formal time-out was completed. The patient's right knee was placed onto a small bump to produce 30? of knee flexion during exposure. A #10 scalpel blade was used to make a midline incision extending 1 handbreadth proximal and distal to the patella. A second #10 scalpel blade was used to dissect the subcutaneous tissues down to the extensor mechanism. The subcutaneous flaps were maintained as thick as possible. A medial parapatellar arthrotomy was then performed using a #10 scalpel blade. The arthrotomy was begun just medial to the patellar tendon. The arthrotomy was continued 1 cm medial to the patella and then 5 mm into the medial aspect of the quadriceps tendon. The infrapatellar fat pad was partially excised to help with exposure. The soft tissue retinaculum was raised one-half of the way around the medial aspect of the proximal tibia. The patella was everted and the knee was flexed to 90?. There was no injury to the patellar tendon or its insertion onto the tibial tubercle. A drill bit was introduced into the distal aspect of the femur with a starting point 1 cm anterior to the origin of the posterior cruciate ligament. The intramedullary alignment isatu was put into place. The distal alignment guide was set for a 5 degree valgus cut. The distal cutting block was put into place and was held with 4 pins. The intramedullary alignment isatu was removed. Soft tissues were retracted in the distal femoral cut was made using a sagittal saw. The distal aspect of the femur measured to be a size 6 right component. Two drill holes were placed into the distal aspect of the femur marking 3? of external rotation. The distal cutting block was impacted into place and was held with 2 pins. Soft tissues were retracted and the 4 distal femoral cuts were made using a sagittal saw. Final notching and drilling of the distal aspect of the femur were performed in routine fashion. The trial femoral component was impacted into place. The knee was taken through a full range of motion. The patella tracked well. The patella was everted and the knee was flexed to 90?. The trial component was removed and our attention was directed to the proximal tibia. The medial and lateral menisci were removed using a #10 scalpel blade. A small rim of the medial meniscus was left intact to help prevent injury to the medial collateral ligament. A drill bit was then introduced into the proximal tibia with a st arting point midway from medial to lateral and one-third of the way posteriorly. The intramedullary alignment isatu was put into place. The proximal tibial cutting guide was placed over the alignment isatu in line with the 2nd toe. The guide was held in place using 3 pins. The intramedullary alignment isatu was removed. Soft tissues were retracted and the proximal tibial cut was made using a sagittal saw. The proximal tibia measured to be a size 6 component. The tibial tray was put into place with a 9 mm liner. The femoral component was impacted into place. The knee was taken through a full range of motion. There was full flexion and full extension. There was no instability with varus or valgus stress testing with the knee in flexion or extension. The patella tracked well with no medially directed force. The rotation of the tibial tray was marked using electrocautery with the knee in extension. The patella was everted and the knee was flexed to 90?. All trial components were removed. The tibial tray was placed onto the proximal tibia in line with the electrocautery maday. The tray was held in place using 3 pins. Final broaching of the proximal tibia was performed in routine fashion. The trial liner and trial femoral component were put into place. The knee was brought into extension and our attention was directed to the patella. The patella measured 25 mm in thickness. The patellar resection guide was set for a 10 mm resection. Soft tissues were retracted and the patella cut was made using a sagittal saw. The remaining patella measured 15 mm in thickness. The undersurface of the patella was measured to be a size 29 asymmetric component. Three drill holes were placed into the undersurface of the patella in routine fashion. The trial component was put into place. The knee was taken through a full range of motion. The patella tracked well. The patella was everted and the knee was flexed to 90?. All trial components were removed. The knee was once again brought into extension and placed onto a small bump. The knee joint was irrigated with copious amounts of normal saline solution via pulse lavage while the cement was mixed. The patella was everted and the knee was flexed to 90?. A small amount of cement was placed along the posterior aspects of the tibial and femoral components. Cement was then pressurized into the proximal tibia. The tibial component was impacted into place. Any excess cement was removed. The polyethylene liner was then impacted into place. Cement was then pressurized into the distal aspect of the femur. A small amount of cement was placed into the intramedullary canal to help reduce bleeding. The femoral component was impacted into place. Any excess cement was removed. The knee was then brought into extension. Cement was pressurized into the undersurface of the patella. The patellar component was put into place and was held with a patella clamp. Any excess cement was removed. Once the cement had hardened the patellar clamp was removed. The knee was taken through a full range of motion. There was full flexion and extension. There was no instability with varus or valgus stress testing with the knee in flexion or extension. The patella tracked well with no medially directed force. The knee joint was irrigated with copious amounts of normal saline solution via pulse lavage. Any significant bleeding vessels were coagulated. The patient's right knee was placed onto a small bump. The arthrotomy was closed with #2 Ethibond [id number] interrupted suture as well as #1 Vicryl [id number] interrupted suture. The wound was once again irrigated. The subcutaneous tissues were closed with 0 Vicryl and 2-0 Vicryl interrupted sutures. The skin was closed with skin tyrese. Dry sterile dressing and Destin bandages were placed over the patient's right knee. The patient was awake and alert. The patient was transferred to the recovery room in stable condition.
--- NOTE | 2024-08-25 13:36 | PHA.MEDREC ---
Pharmacy Consult ? Medication Reconciliation Pharmacy has completed the medication reconciliation. Patient is an [facility] himself and was able to confirm all medications, doses and frequencies. TO NOTE: patient confirmed he is on 80 mg of omeprazole. He also confirmed he last took his ASA 08/17/24 as directed by his provider to prepare for surgery, he also confirmed he stopped metformin on 08/21/24. Confirmed he will be starting ASA and metformin again once discharged.
[2024-08-25] MEDS: oxyCODONE HCl ER 10 MG TAB.ER.12H PO ×2 (14:26→20:49)
[2024-08-25] MEDS: Finasteride 5 MG TABLET PO (14:26)
[2024-08-25] MEDS: metFORMIN HCl ER 500 MG TAB.ER.24H 1000 MG PO ×2 (14:28→20:50)
[2024-08-25] MEDS: Losartan Potassium 25 MG TABLET 75 MG PO (14:28)
[2024-08-25] MEDS: Celecoxib 200 MG CAPSULE PO ×2 (14:29→20:49)
[2024-08-25] MEDS: Omeprazole 40 MG CAPSULE.DR PO (14:29)
[2024-08-25] MEDS: Docusate Sodium 100 MG CAPSULE PO ×2 (14:29→20:49)
[2024-08-25] MEDS: hydroCHLOROthiazide 12.5 MG TABLET PO (14:29)
[2024-08-25] MEDS: oxyCODONE HCl Immed Release 5 MG TABLET PO (14:29)
[2024-08-25] MEDS: Multivitamin TABLET 1 TAB PO (18:26)
[2024-08-25] MEDS: Aspirin 325 MG TABLET PO ×2 (18:26→20:48)
[2024-08-25] MEDS: oxyCODONE HCl Immed Release 5 MG TABLET 10 MG PO (18:26)
[2024-08-25 20:17] LABS: Glucose, Whole Blood 258 mg/dL (60-115)
[2024-08-25] MEDS: Gabapentin 100 MG CAPSULE PO (20:48)
[2024-08-25] MEDS: methocarbamoL 500 MG TABLET PO (20:48)
[2024-08-25] MEDS: Tamsulosin HCL 0.4 MG CAPSULE PO (20:49)
[2024-08-25] MEDS: allopurinoL 300 MG TABLET PO (20:49)
[2024-08-25] MEDS: Pravastatin Sodium 80 MG TABLET PO (20:49)
[2024-08-25] MEDS: Metoprolol Succinate ER 25 MG TAB.ER.24H PO (20:49)
[2024-08-25] MEDS: Insulin Lispro 100 UNIT/ML 3 ML VIAL SUBCUT (20:50)
--- NOTE | 2024-08-25 20:53 | P.CONHOSP_ITS ---
History of Present Illness Data of Consult Service Date: 08/25/24 Requesting physician: Compa Galaviz Primary Care Provider: Oscar Quinn DO, MD HPI Reason for consult: medical management Patient is a 74-year-old male past history significant BPH, HTN, type 2 diabetes, GERD, NAFLD, kidney stones and osteoarthritis, s/p right knee arthroplasty today. Consult placed for medical management. Patient has no acute medical concerns including chest pain, headache, change in vision, shortness of breath, dizziness, nausea, vomiting, abdominal pain, numbness or tingling. The patient reports 3/10 constant pain in the right leg. He did just receive pain medication and feels that this will be helpful. Review of Systems Constitutional: Constitutional: Denies body ache(s), Denies fatigue, Denies fever(s) and Denies headache(s) Eyes: Eyes: Denies change in vision and Denies photophobia ENT: Denies headache(s), Denies nasal congestion, Denies nasal discharge and Denies sore throat Cardiovascular: Cardiovascular: Denies chest pain, Denies rapid heart rate, Denies lightheadedness and Denies dyspnea Respiratory: Respiratory: Denies cough, Denies dyspnea and Denies wheezing Gastrointestinal: Gastrointestinal: Denies diarrhea, Denies nausea and Denies vomiting Genitourinary: Genitourinary: Denies difficulty urinating Musculoskeletal: Musculoskeletal: Reports as per HPI and Reports myalgias Integumentary/Breasts: Skin/Breast: Denies rash Neurologic: Denies confusion and Denies headache(s) Psychiatric: Psychiatric: Denies confusion Endocrine: Endocrine: Denies fatigue and Denies flushing Hematologic/Lymphatic: Hematologic/Lymphatic: Denies easy bleeding and Denies easy bruising Allergic/Immunologic: Allergic/Immunologic: Denies wheezing PMFSH Medical History Schatzki ring of distal esophagus NAFLD (nonalcoholic fatty liver disease) BPH (benign prostatic hyperplasia) Renal calculi Osteoarthritis Diabetes GERD (gastroesophageal reflux disease) Elevated cholesterol HTN (hypertension) Surgical History Hx of lithotripsy History of surgical removal of pilonidal cyst History of appendectomy Hx of right inguinal hernia repair History of esophagogastroduodenoscopy (EGD) H/O colonoscopy Social History Household Members: Spouse Housing: House Are you a primary behavioral health care manager to a significant other at home: No Do you presently have visiting nurse or other home services: No Comment: aware of trip hazard Patient Tobacco Use Status: Former Tobacco user Tobacco use type: Cigarette Years Smoked: 6 Use of substances other than those prescribed or required for medical reasons: No Currently Displaying Signs/Symptoms of Drug Intoxication Withdrawal: No Have you been hit, kicked, punched, or otherwise hurt by someone within the past year? If so, by whom?: No Do you feel safe in your current relationship?: Yes Is there a partner from a previous relationship who is making you feel unsafe now?: No Are you made to feel afraid or neglected: No Spiritual Healthcare Practices: none Jewish Healthcare Practices: Congregational Cultural Healthcare Practices: none Are you DNR?: No Advance Directives Information Provided: Yes (as above noted-no copies here- advised to bring if has) Advance Directives on File: No Do you have a plan to hurt others: No Plan Recently lost weight without trying: No Eating poorly because of decreased appetite: No Nutrition Risks: No Nutritional Risk Poor oral hygiene: No Narrative: No smoking, alcohol or drug use Meds Allergies Allergy/AdvReac Type Severity Reaction Status Date / Time No Known Allergies Allergy Verified 08/25/24 07:09 Active Medications: Current Medications Acetaminophen (Acetaminophen 325 Mg Tablet) 650 mg PO Q6H PRN PRN Reason: Pain, Mild 1-3,fever,headache Allopurinol (Allopurinol 300 Mg Tablet) 300 mg PO BEDTIME [facility] Aspirin (Aspirin 325 Mg Tablet) 325 mg PO BID [facility] Last Admin: 08/25/24 18:26 Dose: 325 mg Celecoxib (Celecoxib 200 Mg Capsule) 200 mg PO BID [facility] Last Admin: 08/25/24 14:29 Dose: 200 mg Dextrose (Dextrose 50 % 25 Gm/50 Ml Syringe) 25 gm IVPUSH Q15M PRN; Protocol PRN Reason: per Hypoglycemia Standing Ord. Dextrose (Dextrose 50 % 25 Gm/50 Ml Syringe) 25 gm IVPUSH Q15M PRN; Protocol PRN Reason: per Hypoglycemia Standing Ord. Docusate Sodium (Docusate Sodium 100 Mg Capsule) 100 mg PO BID [facility] Last Admin: 08/25/24 14:29 Dose: 100 mg Finasteride (Finasteride 5 Mg Tablet) 5 mg PO DAILY [facility] Last Admin: 08/25/24 14:26 Dose: 5 mg Gabapentin (Gabapentin 100 Mg Capsule) 100 mg PO BEDTIME [facility] Glucose (Glucose Gel 15 Gm Gel..Gram.) 15 gm PO Q15M PRN; Protocol PRN Reason: per Hypoglycemia Standing Ord. Glucose (Glucose Gel 15 Gm Gel..Gram.) 15 gm PO Q15M PRN; Protocol PRN Reason: per Hypoglycemia Standing Ord. Hydrochlorothiazide (Hydrochlorothiazide 12.5 Mg Tablet) 12.5 mg PO DAILY [facility] Last Admin: 08/25/24 14:29 Dose: 12.5 mg Hydromorphone HCl (Hydromorphone Hcl 0.5 Mg/0.5 Ml Syringe) 0.25 mg IVPUSH Q4H PRN; Protocol PRN Reason: Pain, Moderate(Pain Scale 4-6) Hydromorphone HCl (Hydromorphone Hcl 0.5 Mg/0.5 Ml Syringe) 0.5 mg IVPUSH Q4H PRN; Protocol PRN Reason: Pain, Severe (Pain Scale 7-10) Lactated Ringer's (Lr) 1,000 mls @ 100 mls/hr IVCONT .Q10H [facility] Last Admin: 08/25/24 14:26 Dose: 100 mls/hr Cefazolin Sodium/Dextrose (Ancef) 2 gm in 50 mls @ 100 mls/hr IV Q8H [facility] Vancomycin HCl 1,500 mg/ (Sodium Chloride) 500 mls @ 333.333 mls/hr IV POSTOP ONE Stop: 08/25/24 21:29 Last Admin: 08/25/24 20:15 Dose: 333.33 mls/hr Insulin Human Lispro (Insulin Lispro 100 Unit/Ml 3 Ml Vial) 0 unit SUBCUT QIDACHS [facility]; Protocol Insulin Human Lispro (Insulin Lispro 100 Unit/Ml 3 Ml Vial) 0 unit SUBCUT QIDACHS [facility]; Protocol Losartan Potassium (Losartan Potassium 25 Mg Tablet) 75 mg PO DAILY [facility]; Protocol Last Admin: 08/25/24 14:28 Dose: 75 mg Magnesium Hydroxide (Milk Of Magnesia 30 Ml Oral.Susp) 30 ml PO DAILY PRN PRN Reason: Constipation Metformin HCl (Metformin Hcl Er 500 Mg Tab.Er.24h) 1,000 mg PO BID [facility] Last Admin: 08/25/24 14:28 Dose: 1,000 mg Methocarbamol (Methocarbamol 500 Mg Tablet) 500 mg PO BEDTIME [facility] Metoprolol Succinate (Metoprolol Succinate Er 25 Mg Tab.Er.24h) 25 mg PO BEDTIME [facility]; Protocol Multivitamins/Vitamin C (Multivitamin Tablet) 1 tab PO DAILY [facility] Last Admin: 08/25/24 18:26 Dose: 1 tab Omeprazole (Omeprazole 40 Mg Capsule.Dr) 40 mg PO DAILY@0630 [facility] Last Admin: 08/25/24 14:29 Dose: 40 mg Ondansetron HCl (Ondansetron Hcl 4 Mg/2 Ml Vial) 4 mg IVPUSH Q8H PRN PRN Reason: Nausea and Vomiting Oxycodone HCl (Oxycodone Hcl Immed Release 5 Mg Tablet) 10 mg PO Q4H PRN PRN Reason: Pain, Moderate(Pain Scale 4-6) Last Admin: 08/25/24 18:26 Dose: 10 mg Oxycodone HCl (Oxycodone Hcl Er 10 Mg Tab.Er.12h) 10 mg PO BID [facility] Last Admin: 08/25/24 14:26 Dose: 10 mg Oxycodone HCl (Oxycodone Hcl Immed Release 5 Mg Tablet) 5 mg PO Q4H PRN PRN Reason: Pain, Mild (Pain Scale 1-3) Pravastatin Sodium (Pravastatin Sodium 80 Mg Tablet) 80 mg PO BEDTIME [facility] Sodium Chloride (0.9 % Sodium Chloride Flush 3 Ml Syringe) 3 ml IVFLUSH QSHIFT [facility] Last Admin: 08/25/24 17:04 Dose: Not Given Tamsulosin HCl (Tamsulosin Hcl 0.4 Mg Capsule) 0.4 mg PO BEDTIME [facility] Home Medications ?Medication ?Instructions ?Recorded ?Confirmed ?Last Taken ?Type allopurinol 300 mg tablet 300 mg PO DAILY 12/31/23 08/25/24 Unknown History finasteride 5 mg tablet 5 mg PO [facility] 12/31/23 08/21/24 Unknown History losartan 50 mg tablet 75 mg PO [facility] 12/31/23 08/21/24 Unknown History omeprazole 40 mg capsule,delayed 80 mg PO [facility] 0708/25/24 08/25/24 History release pravastatin 80 mg tablet 80 mg PO BEDTIME 12/31/23 08/21/24 Unknown History tamsulosin 0.4 mg capsule 0.4 mg PO BEDTIME 12/31/23 08/21/24 Unknown History metoprolol succinate 25 mg 25 mg PO QPM 01/14/24 08/21/24 Unknown History tablet,extended release 24 hr aspirin 81 mg tablet,delayed 81 mg PO QAM 01/31/24 08/21/24 08/18/24 History release chlorthalidone 25 mg tablet 12.5 mg PO QAM 01/31/24 08/21/24 Unknown History multivitamin 1 tab PO QAM 01/31/24 08/21/24 Unknown History semaglutide 0.25 mg or 0.5 mg (2 0.25 mg subcut [place] 05/20/24 08/25/24 08/18/24 History mg/3 mL) subcutaneous pen injector ([employer]) metformin 500 mg tablet,extended 1,000 mg PO BID 08/25/24 08/25/24 Unknown History release 24 hr oxycodone-acetaminophen 5 mg-325 1 tab PO Q12H PRN left side pain 08/25/24 08/25/24 Unknown History mg tablet Physical Exam Vital Signs and Narrative: Vital Signs: Last Vital Signs Temp 98.2 F 08/25/24 19:24 Pulse 84 08/25/24 19:24 Resp 16 08/25/24 19:24 BP 127/67 08/25/24 19:24 Pulse Ox 95 08/25/24 19:24 O2 Del Method Room Air 08/25/24 19:24 O2 Flow Rate 2 08/25/24 13:06 BMI result Body Mass Index 29.5 General: AOx3, no acute distress Resp: CTA bilaterally CVS: S1, S2, RRR GI: +BS, NT, no distention Skin: Warm, dry Neuro: Cranial nerves II-XII grossly intact bilaterally. Motor grossly intact bilaterally Extremities: Pneumoboots present. Sensation intact right lower extremity including toes. Good capillary refill, motor intact, 5/5 strength. Psych: Appropriate affect Const: General: No confusion Orientation/consciousness: No confusion Eyes: Direct Ophthalmoscopy: No photophobia Neuro: General: No confusion Results Labs Labs: Laboratory Results - last 24 hr 08/25/24 08/25/24 07:23 19:26 POC Glucose 232 H 258 H Assessment and Plan (1) Status post right knee replacement: Status: Acute Plan Patient is a 74-year-old male past history significant BPH, HTN, type 2 diabetes, GERD, NAFLD, kidney stones and osteoarthritis, s/p right knee arthroplasty today. Consult placed for medical management. Patient has no acute medical concerns. Medical history and medications reviewed with the patient. S/p right TKA - pain currently 09/01 - has urinated since surgery, bowels active - plan per surgery Type 2 diabetes - diabetic diet - continue metformin - sliding scale insulin BPH - continue Flomax and finasteride HTN - continue metoprolol and losartan History kidney stones - continue allopurinol and chlorthalidone History Schatzki ring/GERD - continue omeprazole Thank you for allowing me to participate in the pt's care. Signing off for now. Please contact the medical team if any questions or concerns.
[2024-08-26] MEDS: Lactated Ringers 1,000 ML 100 ML IVCONT (01:08)
[2024-08-26] MEDS: ceFAZolin Sodium/Dextrose,Iso 2 GM/50 ML PIGGYBACK IV ×2 (01:08→08:22)
[2024-08-26 03:35] VITALS: BP 114/78; PULSE 73; RESP 18; TEMP 36.3; O2SAT 93
[2024-08-26 06:15] LABS: MANUAL DIFF FLAG NO
[2024-08-26] MEDS: Omeprazole 40 MG CAPSULE.DR PO (06:16)
[2024-08-26 06:31] LABS: Basophils Percent Auto 0.1 % (0-2); Hematocrit 34.2 % (42.0-52.0); Hemoglobin 11.7 g/dl (14.0-18.0); Imm Gran Abs Auto 0.03 X10*3/uL (0.00-0.03); Imm Gran Pct Auto 0.4 % (0.0-0.4); Lymphocytes Absolute Auto 1.8 X10*3/uL (1.2-4.9); Lymphocytes Percent Auto 22.6 % (20-40); Mean Corpuscular HGB Conc 34.2 g/dl (31.0-36.0); Mean Corpuscular Hemoglobin 33.1 pg (27.0-33.0); Mean Corpuscular Volume 96.6 fL (80.0-98.0); Monocytes Absolute Auto 0.9 X10*3/uL (0.1-1.2); Monocytes Percent Auto 11.5 % (2-11); Neutrophils Absolute Auto 5.1 x10*3/uL (2.0-8.3); Neutrophils Percent Auto 65.4 % (45-73); Platelet Count 204 X10*3/uL (160-400); Red Blood Count 3.54 X10*6/uL (4.60-5.80); Red Cell Distribution Width 12.1 % (11.0-16.0); White Blood Count 7.7 X10*3/uL (4.8-10.8)
[2024-08-26 06:36] LABS: Anion Gap 12 (12-20); Blood Urea Nitrogen 26 mg/dL (9-16); Calcium 8.9 mg/dL (8.4-10.2); Carbon Dioxide 26 mmol/L (22-29); Chloride 105 mmol/L (96-108); Creatinine Clr Calc Pharmacy 43.9; Estimated Glomerular Filt Rate 42; Glucose Fasting 188 mg/dL (60-99); Potassium 4.2 mmol/L (3.3-5.1); Sodium 139 mmol/L (135-145)
[2024-08-26 07:34] VITALS: BP 114/78; PULSE 73; O2SAT 93
[2024-08-26 07:52] LABS: Glucose, Whole Blood 195 mg/dL (60-115)
[2024-08-26 08:00] VITALS: BP 122/67; PULSE 73; RESP 18; TEMP 36.9; O2SAT 96
[2024-08-26] MEDS: metFORMIN HCl ER 500 MG TAB.ER.24H 1000 MG PO (08:18)
[2024-08-26] MEDS: Insulin Lispro 100 UNIT/ML 3 ML VIAL SUBCUT (08:18)
[2024-08-26] MEDS: Celecoxib 200 MG CAPSULE PO (08:19)
[2024-08-26] MEDS: Aspirin 325 MG TABLET PO (08:19)
[2024-08-26] MEDS: Finasteride 5 MG TABLET PO (08:19)
[2024-08-26] MEDS: Docusate Sodium 100 MG CAPSULE PO (08:19)
[2024-08-26] MEDS: Losartan Potassium 25 MG TABLET 75 MG PO (08:19)
[2024-08-26] MEDS: hydroCHLOROthiazide 12.5 MG TABLET PO (08:20)
[2024-08-26] MEDS: oxyCODONE HCl ER 10 MG TAB.ER.12H PO (08:20)
[2024-08-26] MEDS: Multivitamin TABLET 1 TAB PO (08:27)
--- NOTE | 2024-08-26 09:06 | PM.DS ---
DS: Providers Provider Date of Service: 08/26/24 Date of discharge: 08/26/24 Primary care physician: Oscar Quinn DO, MD Consults: 08/25/24 13:06 Consult to Hospitalist Routine Comment: Consulting Provider: [facility] Reason For Exam: Routine medical management DS: Diagnosis Discharge Diagnosis (1) Status post right knee replacement: Status: Acute DS: Summary Hospital Course Hospital Course: The patient underwent a successful Right total knee arthroplasty on 08/25/[address] Galaviz, was transferred to PACU and then to the floor to recover. During their stay, their vitals were stable, afebrile at 98.4 . Labs were unremarkable, H/H 11.7/34.2 . POD 1 he was started on ASA 325mg tabs bid for DVT ppx, they also received Physical Therapy services twice a day. Physical therapy should include gait training, ROM to tolerance and quad strength. He is WBAT. Prior to discharge, his dressing was clean dry and intact. The Aquacel dressing should remain intact and dry at all times. Any concerns with the dressing, please contact orthopedic office. No showering. The plan is to be discharged home with VNA Time Attestation Discharge Coordination Time (in mins): 30 Quality: Safe Use of Opioids Does Pt have an Active Cancer Diagnosis on the Problem List?: No Quality: Stroke Does the patient have a stroke diagnosis?: No Physical Exam Vital Signs: Vital Signs: Last Vital Signs Temp 98.4 F 08/26/24 08:00 Pulse 73 08/26/24 08:00 Resp 18 08/26/24 08:00 BP 122/67 08/26/24 08:00 Pulse Ox 96 08/26/24 08:00 O2 Del Method Room Air 08/26/24 08:00 O2 Flow Rate 2 08/25/24 13:06 BMI result Body Mass Index 29.5 DS: Data Data Completed and Pending Pending studies at discharge: Pending at discharge 08/25/24 10:36 Surgical [PTH] Routine Labs on day of discharge: Laboratory Results - last 24 hr 08/25/24 08/26/24 08/26/24 19:26 05:59 07:44 WBC 7.7 RBC 3.54 L Hgb 11.7 L Hct 34.2 L MCV 96.6 MCH 33.1 H MCHC 34.2 RDW 12.1 Plt Count 204 MPV 9.0 L Immature Gran % (Auto) 0.4 Neut % (Auto) 65.4 Lymph % (Auto) 22.6 [place] % (Auto) 11.5 H Eos % (Auto) 0.0 Baso % (Auto) 0.1 Lymph # (Auto) 1.8 [place] # (Auto) 0.9 Eos # (Auto) 0.0 Baso # (Auto) 0.0 Abs Immat Gran (auto) 0.03 Absolute Neuts (auto) 5.1 Absolute Nucleated RBC 0.000 Nucleated RBC % (auto) 0.0 Sodium 139 Potassium 4.2 Chloride 105 Carbon Dioxide 26 Anion Gap 12 BUN 26 H Creatinine 1.64 H Estim Creat Clear Calc 43.9 Estimated GFR 42 POC Glucose 258 H 195 H Fasting Glucose 188 H Calcium 8.9 Discharge Plan Discharge Patient Disposition: Home Health Service Referrals: Omaira Lind PA-C [Physician Receiving Coordinator] - 2 Weeks (09/11/24 12:30 [facility] Omaira Lind PA-C) Discharge Medications: New celecoxib 200 mg Capsule 200 mg PO BID 30 Days Qty: 60 0RF methocarbamol 500 mg Tablet 500 mg PO BEDTIME 7 Days Qty: 7 0RF acetaminophen 325 mg Tablet 650 mg PO Q6H PRN (Reason: Pain, Mild 1-3,Fever,Headache) 30 Days Qty: 240 0RF aspirin 325 mg Tablet 325 mg PO BID 42 Days Qty: 84 0RF docusate sodium 100 mg Capsule 100 mg PO BID 14 Days Qty: 28 0RF gabapentin 100 mg Capsule 100 mg PO BEDTIME 7 Days Qty: 7 0RF oxycodone 5 mg Tablet 5 mg PO Q4H PRN (Reason: Pain, Mild (Pain Scale 1-3)) 7 Days Qty: 42 0RF Rx Instructions: Partial Fill upon patient request. Continued (OCTAVIA) walker [facility] See Rx Instructions .ROUTE .MEDSUPPLY Qty: 1 0RF Rx Instructions: Folding front wheeled walker (OCTAVIA) walker [facility] See Rx Instructions .ROUTE .MEDSUPPLY Qty: 1 0RF Rx Instructions: Folding front wheeled walker multivitamin Tablet 1 tab PO QAM chlorthalidone 25 mg tablet 12.5 mg PO QAM metformin 500 mg tablet extended release 24 hr 1,000 mg PO BID tamsulosin 0.4 mg capsule 0.4 mg PO BEDTIME pravastatin 80 mg tablet 80 mg PO BEDTIME allopurinol 300 mg tablet 300 mg PO DAILY omeprazole 40 mg capsule,delayed release(DR/EC) 80 mg PO QAM losartan 50 mg tablet 75 mg PO QAM finasteride 5 mg tablet 5 mg PO QAM metoprolol succinate 25 mg tablet extended release 24 hr 25 mg PO QPM Ozempic 0.25 mg or 0.5 mg (2 mg/3 mL) pen injector 0.25 mg subcut [place] Rx Instructions: takes on Mondays Discontinued aspirin [Aspirin Low-Strength] 81 mg Tablet,Delayed Release (Dr/Ec) 81 mg PO QAM oxycodone-acetaminophen 5-325 mg tablet 1 tab PO Q12H PRN (Reason: left side pain) Discharge Orders: Discharge Order (Routine); Ordered 08/26/24 Ordered By: Miranda Teresa Diet: Regular diet Activity on Discharge: Use cane or walker Activity Restrictions/Additional Instructions: Physical Therapy for Total knee arthroplasty: WBAT, gait training, ROM 0-12, quad strength Limit stair climbing No showering, no tub bath-keep dressing clean, dry and intact No driving x6 weeks Continue Aspirin twice a day x [address] [facility] [place] 2 weeks: Print Language: Tongan
--- NOTE | 2024-08-26 09:07 | W.MHC.F2F ---
Service Date Service Date: 08/26/24 Encounter Date of encounter: 08/26/24 Reasons for Services Signs and symptoms assessed: Weakness, poor balance, poor gait mechanics Reason for physical therapy: home safety and mobility, therapeutic exercises, restore joint function, gait/transfer training, ADL training and energy conservation Reason for occupational therapy: home safety and mobility, therapeutic exercises, restore joint function, gait/transfer training, ADL training and energy conservation Overseeing Care: Compa Galaviz Homebound: Leaving the home is medically contraindicated at this time without the asist of a device and/or another person due th the listed conditions above and below. Reason homebound: unsteady gait / fall risk, pain with ambulation, poor balance / fall risk and unable to drive Homebound supporting statement: Pt. is considered home bound due to recent surgery. Unable to drive, poor balance, poor gait mechanics. Certification: Based on the above findings, I certify that this patient is confined to the home and needs intermittent care home care, physical therapy and/or speech therapy, or continues to need occupational therapy. The patient is under my care, and I have initiated the establishment of the plan of care. The patient will be followed by a physician who will periodically review the plan of care. Time Spent With Patient Time: Total time managing care of this patient today ____ minutes.
--- NOTE | 2024-08-26 09:13 | MHC.CM.PN ---
CM MET WITH PT AT BEDSIDE. PT LIVES WITH SPOUSE AND IS FUNCTIONALLY INDEPENDENT. PT USES [facility]. NO SERVICES. +HCP PCP DR. SYKES DP: PT IS MEDICALLY CLEARED FOR DC HOME WITH NEW [facility] FOR P.T. SERVICES. [employer] LIAISON NOTIFIED OF TODAY'S DC. PT'S SPOUSE WILL TRANSPORT.
--- NOTE | 2024-08-26 09:18 | HO.POSTANES ---
Post Anesthesia Evaluation Post Anesthesia Evaluation Date of Service: 08/26/24 Vital Signs: Vital Signs Temp Pulse Resp BP Pulse Ox O2 Del Method 08/26/24 08:00 98.4 F 73 18 122/67 96 Room Air 08/26/24 07:34 73 114/78 93 08/26/24 03:35 97.4 F 73 18 114/78 93 Room Air 08/25/24 23:20 98.1 F 75 16 128/74 96 Room Air Anesthesia: Spinal Mental Status: Awake Pain Control: Satisfactory Nausea/Vomiting: None Hydration: Adequate Anesthesia-Related Issues: No Anes. Related Issues
[2024-08-26 10:38] VITALS: BP 122/67; PULSE 73; O2SAT 96
[2024-08-26 11:32] LABS: Glucose, Whole Blood 277 mg/dL (60-115)
[2024-08-26 12:00] VITALS: BP 118/70; PULSE 72; RESP 16; TEMP 36.8; O2SAT 97
== END 2024-08-26 12:18 | disposition home health service (06) ==
LOC: HO.SSS 06:53 → HO.S3 11:39
PROVIDERS: Physician Assistant; PCP Internal Medicine; Visit Provider Orthopaedic Surgery
PROC: (CPT 27447; principal; 2024-08-25 09:00)
DX: M17.11 Unilateral primary osteoarthritis, right knee (principal); M79.661 Pain in right lower leg; E11.9 Type 2 diabetes mellitus without complications; I10 Essential (primary) hypertension; E78.00 Pure hypercholesterolemia, unspecified; K21.9 Gastro-esophageal reflux disease without esophagitis; K76.0 Fatty (change of) liver, not elsewhere classified; N40.0 Benign prostatic hyperplasia without lower urinary tract symptoms; Z87.442 Personal history of urinary calculi; Z79.82 Long term (current) use of aspirin; Z79.84 Long term (current) use of oral hypoglycemic drugs; Z79.85 Long-term (current) use of injectable non-insulin antidiabetic drugs; Z98.890 Other specified postprocedural states; Z87.891 Personal history of nicotine dependence
CPT/HCPCS: 27447; 36415; 80048; 82947; 85025; 86850; 86900; 86901; 87640; 87641; 88304; 88305; 88311; 97110; 97116; 97161; 97530; C1776; J0131; J0665; J0690; J1100; J2003; J2250; J2371; J2405; J2704; J3370; J3371; J7120

== ENCOUNTER → 2024-08-25 06:53 | Outpatient (BNV) | payer MEDICARE, SELFPAY | PROVIDERS: PCP Internal Medicine; Visit Provider Orthopaedic Surgery | DX: Z47.1 Aftercare following joint replacement surgery (principal); Z96.651 Presence of right artificial knee joint | CPT/HCPCS: 27447; 99024; G0180 ==

== ENCOUNTER → 2024-08-25 06:53 | Outpatient (BNV) | payer MEDICARE, SELFPAY | PROVIDERS: PCP Internal Medicine; Visit Provider Physician Assistant | DX: Z96.651 Presence of right artificial knee joint (principal) | CPT/HCPCS: 99222 ==

== ENCOUNTER 2024-09-11 08:14 | Outpatient (REF) | payer MEDICARE, SELFPAY ==
--- NOTE | ~2024-09-11 | XR_ITS ---
EXAMINATION: XR KNEE 3 VIEWS RIGHT HISTORY: M25.569 - Pain in unspecified knee COMPARISON: Comparison is made with the prior examination dated 12/31/2023. FINDINGS: Three views of the right knee are submitted. The patient is status post total knee arthroplasty. The orthopedic elements are in anatomic alignment. There is no fracture or dislocation. There is a new 1.4 cm lucency in the distal femoral metaphysis. Postoperative changes are noted in the soft tissues. XR/XR knee RT 3V IMPRESSION: 1. Status post right total knee arthroplasty. 2. New lucency in the distal femoral metaphysis. If there are more recent prior studies, comparison is recommended. Electronically signed by: Gene Gonsalez MD 09/12/2024 03:55 PM EDT
== END 2024-09-11 08:15 | disposition home or self-care (01) ==
LOC: HO.HOSX 08:14
PROVIDERS: Visit Provider Physician Assistant
DX: M25.561 Pain in right knee (principal); Z96.651 Presence of right artificial knee joint
CPT/HCPCS: 73562; 99212

== ENCOUNTER 2024-09-11 12:18 | Outpatient (AMB) | payer MEDICARE, SELFPAY ==
--- NOTE | 2024-09-11 12:24 | MHC.OFFVIS ---
Intake Visit Reasons: 2WK PO: R TKA w/ 08/25/24 Intake Note: Bassem is a 74 year old male who presents today for a post op appointment s/p right total knee arthroplasty 08/25/24 Patient reports having minimal pain in his knee. Bandage was removed. Incision site looks clean, no redness or puffiness. Allergies No Known Allergies Allergy (Verified 09/11/24 12:26) HPI HPI 2WK PO: R TKA w/ 08/25/24: Details: Mr. Cormier this is a 74-year-old male presents to the office today status post right knee arthroplasty with Dr. Galaviz on 08/25/2024. Overall the patient is doing very well. He has been working with [facility] home physical therapy. He reports his pain is managed. No additional complaints. [facility] Medical History Schatzki ring of distal esophagus NAFLD (nonalcoholic fatty liver disease) BPH (benign prostatic hyperplasia) Renal calculi Osteoarthritis Diabetes GERD (gastroesophageal reflux disease) Elevated cholesterol HTN (hypertension) Surgical History Hx of lithotripsy History of surgical removal of pilonidal cyst History of appendectomy Hx of right inguinal hernia repair History of esophagogastroduodenoscopy (EGD) H/O colonoscopy Social History Household Members: Spouse Housing: House Are you a primary lpn care manager to a significant other at home: No Do you presently have visiting nurse or other home services: No Comment: aware of trip hazard Patient Tobacco Use Status: Former Tobacco user Tobacco use type: Cigarette Years Smoked: 6 service: No Review of Systems Const All systems reviewed & are unremarkable except as noted in HPI and below Physical Exam Const General: cooperative, healthy appearing and no acute distress Resp Effort & Inspection: normal respiratory effort and able to speak in complete sentences Cardio Rate: regular rate Peripheral pulses: Peripheral pulses 2+ throughout Skin Lesions: no lesions Rashes: no rashes Extrem Other: Right knee tyrese intact. No surrounding erythema or drainage. No signs of infection. Range of motion is 10-120 degrees. Calf is supple and nontender. NVI. Assessment & Plan Assessment & Plan (1) Status post right knee replacement: Code(s): Z96.651 - Presence of right artificial knee joint Category: Surgical Plan Mr. Cormier this is a 74-year-old male presents to the office today status post right knee arthroplasty with Dr. Galaviz on 08/25/2024. Overall the patient is doing very well. He has been working with [facility]. He reports his pain is managed. No additional complaints. While the office today, tyrese removed and Steri-Strips were applied. The patient reports that he has outpatient physical therapy appointment scheduled. He will continue anticoagulation until 6 weeks postop. He will follow up in [address] Galaviz, sooner if needed. X-rays of the right knee which were obtained while in the office today and were reviewed by me, Omaira Lind PA-C, revealed intact right total knee arthroplasty with satisfactory alignment. Orders: Orders XR knee RT 3V Today M25.569 - Pain in unspecified knee XR knee LT 1V Today M25.569 - Pain in unspecified knee Coding Level of Care Code Global (42590) Diagnoses Status post right knee replacement Z96.651
--- OUTSIDE RECORDS SUMMARY | 2024-09-11 14:40 | XMS_ITS | Clinical Summary ---
Author Organization [facility] Address [address] [phone] Phone Care Team Providers Care Dust Control Engineer Name Role Phone Oscar Quinn DO Primary Care Provider [phone] Allergies No known active allergies Medications Aspirin [...] Visit [facility] [address] [phone] Pancho Mars MD [address] [phone] Health Maintenance Due Date Last Done Comments [...] 9:05 AM EST) Cystine, Ur CANCELED [facility] Comment: Test not performed. Previous test results on file. Result canceled by the ancillary. Urine Volume (Preservative) 1,390 500 - 4,000 mL/24 hr [facility] Calcium Oxalate 9.97 6.00 - 10.00 [facility] Calcium, 24H Urine 144 <250 mg/24 hr [facility] Oxalate, 24H Ur 49(H) 20 - 40 mg/24 hr [facility] Citrate, 24H Ur 449(L) >450 mg/24 hr [facility] Calcium Phosphate Saturation 0.14(L) 0.50 - 2.00 [facility] pH, 24 Hr Urine 5.170(L) 5.800 - 6.200 [facility] Uric Acid Saturation 2.05(H) <1.00 [facility] Uric Acid, 24H Ur 433 <800 mg/24 hr [facility] Comment:The urine UA result was verified by repeat analysis. Sodium, 24H Ur 233(H) 50 - 150 mmol/24 hr [facility] Potassium, 24H Ur 34 20 - 100 mmol/24 hr [facility] Magnesium, 24H Ur 68 30 - 120 mg/24 hr [facility] Phosphorus 24 Hour Urine 619 600 - 1,200 mg/24 hr [facility] Comment:The urine P result w as verified by repeat analysis. Ammonia, 24 hr Urine 34 15 - 60 mmol/24 hr [facility] Chloride, 24H Ur 256(H) 70 - 250 mmol/24 hr [facility] Sulfate, 24H Ur 17(L) 20 - 80 meq/24 hr [facility] Urea Nitrogen, 24H Ur 8.76 6.00 - 14.00 g/24 hr [facility] Protein Catabolic Rate, (14) 0.8 0.8 - 1.4 g/kg/24 hr [facility] Creatinine in 24 hour Urine 1,381 Not Applic. mg/24 hr [facility] Creatinine/KG Body Weight 15.2 11.9 - 24.4 mg/24 hr/kg [facility] Calcium/KG Body Weight 1.6 <4.0 mg/24 hr/kg [facility] Calcium/Creat.R atio 104 34 - 196 mg/g creat [facility] Comment Note [facility] PDF . [facility] Urine (Urine) 06/16/2024 9:0 5 AM EST 06/20/2024 us Pancho Mars MD LAB URINE ORDERABLES Edited Resu lt - Final [facility] [address] [place] [phone] from Last 3 Months Insurance MEDICARE [facility] MEDICARE [facility] Care Teams Dust Control Engineer Relationship Specialty Start Date End Date Oscar Quinn DO [address] [place] [address] [place] P[place] - General 07/05/20
--- OUTSIDE RECORDS SUMMARY | 2024-09-11 14:40 | XMS_ITS | Clinical Summary ---
Author Organization [address] Address [address] [place] [phone] Phone Care Team Providers Care Clinical Implementation Specialist Name Role Phone Oscar Quinn DO Primary Care Provider [phone] Surgical History Surgery Date Site/Laterality Comments APPENDECTOMY [...] CBC auto differential (07/28/2024 11:39 AM EST) [facility] WBC 10.5 4.8 - 10.8 K/mcL LAB HEMETOLOGY METHOD 07/28/2024 2:44 PM [facility] RBC 4.20(L) 4.50 - 5.50 M/mcL LAB HEMETOLOGY METHOD 07/28/2024 2:44 PM [facility] Hemoglobin 13.8 13.5 - 17.5 g/dL LAB HEMETOLOGY METHOD 07/28/2024 2:44 PM [facility] Hematocrit 41.4(L) 42.0 - 54.0 % LAB HEMETOLOGY METHOD 07/28/2024 2:44 PM [facility] MCV 99.0(H) 79.0 - 98.0 FL LAB HEMETOLOGY METHOD 07/28/2024 2:44 PM [facility] MCH 33.0(H) 27.0 - 32.0 pcg LAB HEMETOLOGY METHOD 07/28/2024 2:44 PM [facility] MCHC 33.3 32.0 - 37.0 g/dL LAB HEMETOLOGY METHOD 07/28/2024 2:44 PM [facility] RDW 13.0 11.0 - 15.0 % LAB HEMETOLOGY METHOD 07/28/2024 2:44 PM [facility] Platelets 241 130 - 400 K/mcL LAB HEMETOLOGY METHOD 07/28/2024 2:44 PM [facility] MPV 9.3 7.0 - 11.0 FL LAB HEMETOLOGY METHOD 07/28/2024 2:44 PM [facility] NRBC 0.0 <1.0 % LAB HEMETOLOGY METHOD 07/28/2024 2:44 PM [facility] NRBC Absolute 0.00 <0.10 K/mcL LAB HEMETOLOGY METHOD 07/28/2024 2:44 PM [facility] Neutrophils Relative 71.8 % LAB HEMETOLOGY METHOD 07/28/2024 2:44 PM [facility] Lymphocytes Relative 19.9 % LAB HEMETOLOGY METHOD 07/28/2024 2:44 PM [facility] Monocytes Relative 7.2 % LAB HEMETOLOGY METHOD 07/28/2024 2:44 PM [facility] Eosinophils Relative 0.4 % LAB HEMETOLOGY METHOD 07/28/2024 2:44 PM [facility] Basophils Relative 0.2 % LAB HEMETOLOGY METHOD 07/28/2024 2:44 PM [facility] Immature Granulocytes Relative 0.5 % LAB HEMETOLOGY METHOD 07/28/2024 2:44 PM [facility] Neutrophils Absolute 7.53(H) 1.50 - 7.00 K/mcL LAB HEMETOLOGY METHOD 07/28/2024 2:44 PM [facility] Lymphocytes Absolute 2.09 1.00 - 5.00 K/mcL LAB HEMETOLOGY METHOD 07/28/2024 2:44 PM [facility] Monocytes Absolute 0.76 0.20 - 1.00 K/mcL LAB HEMETOLOGY METHOD 07/28/2024 2:44 PM [facility] Eosinophils Absolute 0.04 0.00 - 0.50 K/mcL LAB HEMETOLOGY METHOD 07/28/2024 2:44 PM [facility] Basophils Absolute 0.02 0.00 - 0.20 K/[facility] LAB HEMETOLOGY METHOD 07/28/2024 2:44 PM EST [facility] Immature Granulocytes Absolute 0.05(H) 0.00 - 0.03 K/[facility] LAB HEMETOLOGY METHOD 07/28/2024 2:44 PM [facility] Blood Venous blood specimen / Unknown Venipuncture / Unknown 07/28/2024 11:39 AM EST 07/28/2024 11:39 AM EST [facility] [employer] LAB BLOOD ORDERABLES Final Resul t Performing Organization Address [facility]/ZIP Co de Phone Number [facility] [address] [place] [address], [place] [phone] * (ABNORMAL) Prothrombin time with INR (07/28/2024 11:39 AM EST) Pathologist [facility] [place] Protime 9.8(L) 10.6 - 13.9 sec LAB COAGULATION METHOD 07/28/2024 2:53 PM [facility] INR 0.8 LAB COAGULATION METHOD 07/28/2024 2:53 PM [facility] Blood Venous blood specimen / Unknown Venipuncture / Unknown 07/28/2024 11:39 AM EST 07/28/2024 11:39 AM EST [facility] LAB BLOOD ORDERABLES Final Resul t Performing Organization Address City/[facility]/ZIP Co de Phone Number [facility] [address] [place] [address], [place] [phone] * (ABNORMAL) Hemoglobin A1c (07/28/2024 11:39 AM EST) Pathologist [facility] [place] Hemoglobin A1C 7.2(H) <6.5 % LAB CHEMISTRY METHOD 07/28/2024 9:47 PM EST [facility] Mean Bld Glu Estim. 160 mg/dL LAB CHEMISTRY METHOD 07/28/2024 9:47 PM [facility] Blood Venous blood specimen / Unknown Venipuncture / Unknown 07/28/2024 11:39 AM EST 07/28/2024 11:39 AM EST us [facility] LAB BLOOD ORDERABLES Final Resul t [facility] [address] [place] [address], * (ABNORMAL) Comprehensive metabolic panel (07/28/2024 11:39 AM EST) Sodium 137 133 - 145 mmol/L LAB CHEMISTRY METHOD 07/28/2024 5:21 PM [facility] Potassium 4.1 3.5 - 5.5 mmol/L LAB CHEMISTRY METHOD 07/28/2024 5:21 PM [facility] Chloride 103 96 - 110 mmol/L LAB CHEMISTRY METHOD 07/28/2024 5:21 PM [facility] CO2 26 21 - 32 mmol/L LAB CHEMISTRY METHOD 07/28/2024 5:21 PM [facility] Anion Gap 8 3 - 11 LAB CHEMISTRY METHOD 07/28/2024 5:21 PM [facility] Glucose 179(H) 70 - 100 mg/dL LAB CHEMISTRY METHOD 07/28/2024 5:21 PM [facility] BUN 29(H) 5 - 25 mg/dL LAB CHEMISTRY METHOD 07/28/2024 5:21 PM [facility] Creatinine 1.47(H) 0.70 - 1.30 mg/dL LAB CHEMISTRY METHOD 07/28/2024 5:21 PM [facility] eGFR 50(L) >=60 mL/min/1. 73m2 LAB CHEMISTRY METHOD 07/28/2024 5:21 PM [facility] Comment:Calculation based on the??Chronic Kidney Disease Epidemiology Collaboration (CKD-EPI) equation refit??without adjustment for race. BUN/Creatinine Ratio 19.7 LAB CHEMISTRY METHOD 07/28/2024 5:21 PM [facility] Calcium 10.3 8.5 - 10.5 mg/dL LAB CHEMISTRY METHOD 07/28/2024 5:21 PM [facility] AST (SGOT) 15 10 - 42 unit/L LAB CHEMISTRY METHOD 07/28/2024 5:21 PM [facility] ALT (SGPT) 29 10 - 60 unit/L LAB CHEMISTRY METHOD 07/28/2024 5:21 PM [facility] Alkaline Phosphatase 70 42 - 121 unit/L LAB CHEMISTRY METHOD 07/28/2024 5:21 PM [facility] Total Protein 6.9 6.0 - 8.0 g/dL LAB CHEMISTRY METHOD 07/28/2024 5:21 PM [facility] Albumin 4.2 3.2 - 5.0 g/dL LAB CHEMISTRY METHOD 07/28/2024 5:21 PM [facility] Total Bilirubin 0.7 0.0 - 1.4 mg/dL LAB CHEMISTRY METHOD 07/28/2024 5:21 PM [facility] Blood Venous blood specimen / Unknown Venipuncture / Unknown 07/28/2024 11:39 AM EST 07/28/2024 11:39 AM EST [facility] LAB BLOOD ORDERABLES Final Resul t [facility] [address] [place] [address], * (ABNORMAL) Lipid panel with reflex to direct LDL (05/12/2024 8:45 AM EST) Cholesterol 146 0 - 200 mg/dL LAB CHEMISTRY METHOD 05/12/2024 12:38 PM [facility] Triglycerides 241(H) 0 - 150 mg/dL LAB CHEMISTRY METHOD 05/12/2024 12:38 PM [facility] HDL 51 >=40 mg/dL LAB CHEMISTRY METHOD 05/12/2024 12:38 PM [facility] LDL Calculated 47 0 - 100 mg/dL LAB CHEMISTRY METHOD 05/12/2024 12:38 PM [facility] VLDL Cholesterol Lg 48.2 mg/dL LAB CHEMISTRY METHOD 05/12/2024 12:38 PM [facility] Non HDL Chol. (LDL+VLDL) 95 <145 mg/dL LAB CHEMISTRY METHOD 05/12/2024 12:38 PM [facility] Chol/HDL Ratio 2.9 0.0 - 4.4 LAB CHEMISTRY METHOD 05/12/2024 12:38 PM [facility] Blood Venous blood specimen / Unknown Venipuncture / Unknown 05/12/2024 8:45 AM EST 05/12/2024 8:45 AM EST Oscar Quinn DO LAB BLOOD ORDERABLES Final Re sult [facility] [address] [place] [address], from Last 3 Months or Most Recently Relevant to Health Maintenance Insurance MEDICARE Care Teams Clinical Implementation Specialist Relationship Specialty Start Date End Date Oscar Quinn DO [address] [place] [phone] PCP - General Internal Medicine 10/01/18
--- OUTSIDE RECORDS SUMMARY | 2024-09-11 14:40 | XMS_ITS | Clinical Summary ---
Author Organization [facility] Address [address] [place] [address] Care Team Providers Care Renewable Energy Technician Name Role Phone Oscar Quinn DO Primary Care Provider Allergies No known active allergies Medications Medication [...] 0.4 MG CAPS 0 10/23/2018 Active PEG [id number]-NaSulf (PEG 3350/ELECTROLYTES) 240 g SOLR 0 10/09/2018 [...] age to complete this topic Care Teams Renewable Energy Technician Relationship Specialty Start Date End Date Oscar Quinn DO [address] [place] [address] [address] [place] [address] PCP - General Internal Medicine 10/01/18
== END 2024-09-11 12:49 | disposition home or self-care (01) ==
LOC: HO.HOS 12:19
PROVIDERS: PCP Internal Medicine; Visit Provider Physician Assistant
DX: Z96.651 Presence of right artificial knee joint (principal)
CPT/HCPCS: 99024

== ENCOUNTER → 2024-09-11 12:21 | Outpatient (BNV) | payer MEDICARE, SELFPAY | PROVIDERS: Visit Provider Radiology Diagnostic Radiology | DX: Z96.651 Presence of right artificial knee joint (principal) | CPT/HCPCS: 73562 ==

== ENCOUNTER 2024-10-02 12:19 | Outpatient (AMB) | payer MEDICARE, SELFPAY ==
--- NOTE | 2024-10-02 12:21 | MHC.OFFVIS ---
Intake Visit Reasons: 6WK PO: R TKA w/DR 08/25/24 Intake Note: Bassem is a 74 year old male who presents with complaints of mild to moderate discomfort in his right knee after undergoing right total knee replacement surgery on 08/25/2024. He continues with his physical therapy exercises. He completed formal physical therapy. Allergies No Known Allergies Allergy (Verified 10/02/24 12:23) Medication List - Last Reconciled 10/02/24 by Compa Galaviz MD acetaminophen 650 mg (2 x 325 mg) PO Q6H PRN 30 days allopurinol 300 mg PO DAILY aspirin 325 mg PO BID 42 days celecoxib 200 mg PO BID 30 days chlorthalidone 12.5 mg PO QAM docusate sodium 100 mg PO BID 14 days finasteride 5 mg PO QAM gabapentin 100 mg PO BEDTIME 7 days losartan 75 mg PO QAM metformin ER 1,000 mg PO BID methocarbamol 500 mg PO BEDTIME 7 days metoprolol succinate ER 25 mg PO QPM multivitamin 1 tab PO QAM omeprazole 80 mg PO QAM oxycodone 5 mg PO Q4H PRN 7 days pravastatin 80 mg PO BEDTIME semaglutide (Ozempic) 0.25 mg subcut MO tamsulosin 0.4 mg PO BEDTIME walker Folding front wheeled walker walker Folding front wheeled walker [facility] Medical History Schatzki ring of distal esophagus NAFLD (nonalcoholic fatty liver disease) BPH (benign prostatic hyperplasia) Renal calculi Osteoarthritis Diabetes GERD (gastroesophageal reflux disease) Elevated cholesterol HTN (hypertension) Surgical History Hx of lithotripsy History of surgical removal of pilonidal cyst History of appendectomy Hx of right inguinal hernia repair History of esophagogastroduodenoscopy (EGD) H/O colonoscopy Social History Household Members: Spouse Housing: House Are you a primary health care marketing manager to a significant other at home: No Do you presently have visiting nurse or other home services: No Comment: aware of trip hazard Patient Tobacco Use Status: Former Tobacco user Tobacco use type: Cigarette Years Smoked: 6 service: No Physical Exam Extrem Other: Right knee examination shows full active extension and flexion to 125 degrees, his patella tracks well, no instability Assessment & Plan Assessment & Plan (1) Right knee pain: Code(s): M25.561 - Pain in right knee Category: Medical Plan Mr. Cormier is doing very well after undergoing right total knee replacement surgery on 08/25/2024. He will continue with his physical therapy exercises. He does know to take antibiotics before any dental work. He will contact me prior to his follow-up appointment in 3 months should any questions or concerns arise. Feel free to call me at any time should questions regarding his orthopedic management arise. Coding Level of Care Code Global (60478) Diagnoses Right knee pain M25.561
--- OUTSIDE RECORDS SUMMARY | 2024-10-02 14:48 | XMS_ITS | Clinical Summary ---
Author Organization [facility] Address [address] [phone] Phone Care Team Providers Care Florist Manager Name Role Phone Oscar Quinn DO Primary Care Provider [phone] Allergies No known active allergies Medications Aspirin [...] Visit [facility] [address] [phone] Pancho Mars MD [address] [phone] Health Maintenance Due Date Last Done Comments Pneumococcal Vaccine: 50+ Ye ars (1 of 2 - PCV) 1956 Colorectal Cancer Screening: Annual FOBT 2001 Colorectal Cancer Screening: Colonoscopy 2001 Colorectal Cancer Screening: Sigmoidoscopy 2001 Influenza Vaccine (Season Ended) 2025 Hepatitis B Vaccine Aged Out No longe r eligible based on patient's age to complete this topic Insurance Medicare [facility] Medicare [facility] Care Teams Florist Manager Relationship Specialty Start Date End Date Oscar Quinn DO [address] [place] [address] PCP - General 07/05/20
--- OUTSIDE RECORDS SUMMARY | 2024-10-02 14:48 | XMS_ITS | Clinical Summary ---
Author Organization [address] Address [address] [place] [phone] Phone Care Team Providers Care Ethernet Network Architect Name Role Phone Oscar Quinn DO Primary Care Provider [phone] Surgical History Surgery Date Site/Laterality Comments APPENDECTOMY [...] Blood Test 07/28/2025 07/28/2024, 05/12/2024 RSV Immunization Adult Patients (1 - 1-dose 75+ series) 2027 Cholesterol [...] age to complete this topic Meningococcal B Vaccine Aged Out No l onger eligible based on patient's age to complete [...] exam (CPE) HTN (hypertension) DM (diabetes mellitus) ([facility] V24, [facility] V28) HLD (hyperlipidemia) from Last 3 Months or Most Recently Relevant to Health Maintenance Results * (ABNORMAL) CBC auto differential (07/28/2024 11:39 AM EST) [facility] WBC 10.5 4.8 - 10.8 K/mcL LAB HEMETOLOGY METHOD 07/28/2024 2:44 PM [facility] RBC 4.20(L) 4.50 - 5.50 M/mcL LAB HEMETOLOGY METHOD 07/28/2024 2:44 PM [facility] Hemoglobin 13.8 13.5 - 17.5 g/dL LAB HEMETOLOGY METHOD 07/28/2024 2:44 PM [facility] Hematocrit 41.4(L) 42.0 - 54.0 % LAB HEMETOLOGY METHOD 07/28/2024 2:44 PM [facility] MCV 99.0(H) 79.0 - 98.0 FL LAB HEMETOLOGY METHOD 07/28/2024 2:44 PM [facility] MCH 33.0(H) 27.0 - 32.0 pcg LAB HEMETOLOGY METHOD 07/28/2024 2:44 PM [facility] MCHC 33.3 32.0 - 37.0 g/dL LAB HEMETOLOGY METHOD 07/28/2024 2:44 PM [facility] RDW 13.0 11.0 - 15.0 % LAB HEMETOLOGY METHOD 07/28/2024 2:44 PM [facility] Platelets 241 130 - 400 K/mcL LAB HEMETOLOGY METHOD 07/28/2024 2:44 PM [facility] MPV 9.3 7.0 - 11.0 FL LAB HEMETOLOGY METHOD 07/28/2024 2:44 PM [facility] NRBC 0.0 <1.0 % LAB HEMETOLOGY METHOD 07/28/2024 2:44 PM [facility] NRBC Absolute 0.00 <0.10 K/mcL LAB HEMETOLOGY METHOD 07/28/2024 2:44 PM [facility] Neutrophils Relative 71.8 % LAB HEMETOLOGY METHOD 07/28/2024 2:44 PM [facility] Lymphocytes Relative 19.9 % LAB HEMETOLOGY METHOD 07/28/2024 2:44 PM [facility] Monocytes Relative 7.2 % LAB HEMETOLOGY METHOD 07/28/2024 2:44 PM [facility] Eosinophils Relative 0.4 % LAB HEMETOLOGY METHOD 07/28/2024 2:44 PM [facility] Basophils Relative 0.2 % LAB HEMETOLOGY METHOD 07/28/2024 2:44 PM [facility] Immature Granulocytes Relative 0.5 % LAB HEMETOLOGY METHOD 07/28/2024 2:44 PM [facility] Neutrophils Absolute 7.53(H) 1.50 - 7.00 K/mcL LAB HEMETOLOGY METHOD 07/28/2024 2:44 PM [facility] Lymphocytes Absolute 2.09 1.00 - 5.00 K/mcL LAB HEMETOLOGY METHOD 07/28/2024 2:44 PM [facility] Monocytes Absolute 0.76 0.20 - 1.00 K/mcL LAB HEMETOLOGY METHOD 07/28/2024 2:44 PM [facility] Eosinophils Absolute 0.04 0.00 - 0.50 K/mcL LAB HEMETOLOGY METHOD 07/28/2024 2:44 PM [facility] Basophils Absolute 0.02 0.00 - 0.20 K/[facility] LAB HEMETOLOGY METHOD 07/28/2024 2:44 PM EST [facility] Immature Granulocytes Absolute 0.05(H) 0.00 - 0.03 K/[facility] LAB HEMETOLOGY METHOD 07/28/2024 2:44 PM EST [facility] Blood Venous blood specimen / Unknown Venipuncture / Unknown 07/28/2024 11:39 AM EST 07/28/2024 11:39 AM EST [facility] LAB BLOOD ORDERABLES Final Resul t Performing Organization Address [facility]/ZIP Co de Phone Number [facility] [address] [place] [address], [place] [phone] * (ABNORMAL) Prothrombin time with INR (07/28/2024 11:39 AM EST) Pathologist [facility] Protime 9.8(L) 10.6 - 13.9 sec LAB COAGULATION METHOD 07/28/2024 2:53 PM EST [facility] INR 0.8 LAB COAGULATION METHOD 07/28/2024 2:53 PM EST [facility] Blood Venous blood specimen / Unknown Venipuncture / Unknown 07/28/2024 11:39 AM EST 07/28/2024 11:39 AM EST [facility] LAB BLOOD ORDERABLES Final Resul t [facility] [address] [place] [address], [place] [phone] * (ABNORMAL) Hemoglobin A1c (07/28/2024 11:39 AM EST) Pathologist [facility] Hemoglobin A1C 7.2(H) <6.5 % LAB CHEMISTRY METHOD 07/28/2024 9:47 PM EST [facility] Mean Bld Glu Estim. 160 mg/dL LAB CHEMISTRY METHOD 07/28/2024 9:47 PM [facility] Blood Venous blood specimen / Unknown Venipuncture / Unknown 07/28/2024 11:39 AM EST 07/28/2024 11:39 AM EST us [facility] LAB BLOOD ORDERABLES Final Resul t [facility] [address] [place] [address], * (ABNORMAL) Comprehensive metabolic panel (07/28/2024 11:39 AM EST) Sodium 137 133 - 145 mmol/L LAB CHEMISTRY METHOD 07/28/2024 5:21 PM [facility] Potassium 4.1 3.5 - 5.5 mmol/L LAB CHEMISTRY METHOD 07/28/2024 5:21 PM [facility] Chloride 103 96 - 110 mmol/L LAB CHEMISTRY METHOD 07/28/2024 5:21 PM [facility] CO2 26 21 - 32 mmol/L LAB CHEMISTRY METHOD 07/28/2024 5:21 PM [facility] Anion Gap 8 3 - 11 LAB CHEMISTRY METHOD 07/28/2024 5:21 PM [facility] Glucose 179(H) 70 - 100 mg/dL LAB CHEMISTRY METHOD 07/28/2024 5:21 PM [facility] BUN 29(H) 5 - 25 mg/dL LAB CHEMISTRY METHOD 07/28/2024 5:21 PM [facility] Creatinine 1.47(H) 0.70 - 1.30 mg/dL LAB CHEMISTRY METHOD 07/28/2024 5:21 PM [facility] eGFR 50(L) >=60 mL/min/1. 73m2 LAB CHEMISTRY METHOD 07/28/2024 5:21 PM [facility] Comment:Calculation based on the??Chronic Kidney Disease Epidemiology Collaboration (CKD-EPI) equation refit??without adjustment for race. BUN/Creatinine Ratio 19.7 LAB CHEMISTRY METHOD 07/28/2024 5:21 PM [facility] Calcium 10.3 8.5 - 10.5 mg/dL LAB CHEMISTRY METHOD 07/28/2024 5:21 PM [facility] AST (SGOT) 15 10 - 42 unit/L LAB CHEMISTRY METHOD 07/28/2024 5:21 PM [facility] ALT (SGPT) 29 10 - 60 unit/L LAB CHEMISTRY METHOD 07/28/2024 5:21 PM [facility] Alkaline Phosphatase 70 42 - 121 unit/L LAB CHEMISTRY METHOD 07/28/2024 5:21 PM [facility] Total Protein 6.9 6.0 - 8.0 g/dL LAB CHEMISTRY METHOD 07/28/2024 5:21 PM [facility] Albumin 4.2 3.2 - 5.0 g/dL LAB CHEMISTRY METHOD 07/28/2024 5:21 PM [facility] Total Bilirubin 0.7 0.0 - 1.4 mg/dL LAB CHEMISTRY METHOD 07/28/2024 5:21 PM [facility] Blood Venous blood specimen / Unknown Venipuncture / Unknown 07/28/2024 11:39 AM EST 07/28/2024 11:39 AM EST [facility] LAB BLOOD ORDERABLES Final Resul t [facility] [address] [place] [address], * (ABNORMAL) Lipid panel with reflex to direct LDL (05/12/2024 8:45 AM EST) Cholesterol 146 0 - 200 mg/dL LAB CHEMISTRY METHOD 05/12/2024 12:38 PM [facility] Triglycerides 241(H) 0 - 150 mg/dL LAB CHEMISTRY METHOD 05/12/2024 12:38 PM EST [facility] HDL 51 >=40 mg/dL LAB CHEMISTRY METHOD 05/12/2024 12:38 PM [facility] LDL Calculated 47 0 - 100 mg/dL LAB CHEMISTRY METHOD 05/12/2024 12:38 PM [facility] VLDL Cholesterol Lg 48.2 mg/dL LAB CHEMISTRY METHOD 05/12/2024 12:38 PM [facility] Non HDL Chol. (LDL+VLDL) 95 <145 mg/dL LAB CHEMISTRY METHOD 05/12/2024 12:38 PM [facility] Chol/HDL Ratio 2.9 0.0 - 4.4 LAB CHEMISTRY METHOD 05/12/2024 12:38 PM [facility] Blood Venous blood specimen / Unknown Venipuncture / Unknown 05/12/2024 8:45 AM EST 05/12/2024 8:45 AM EST us Oscar Quinn DO LAB BLOOD ORDERABLES Final Re sult [facility] [address] [place] [address], from Last 3 Months or Most Recently Relevant to Health Maintenance Insurance MEDICARE Care Teams Ethernet Network Architect Relationship Specialty Start Date End Date Oscar Quinn DO [address] [place] [phone] PCP - General Internal Medicine 10/01/18
--- OUTSIDE RECORDS SUMMARY | 2024-10-02 14:48 | XMS_ITS | Clinical Summary ---
Author Organization [facility] Address [address] [place] [address] Care Team Providers Care Sleeping Car Porter Name Role Phone Oscar Quinn DO Primary Care Provider [phone] Allergies No known active allergies Medications Medication [...] 0.4 MG CAPS 0 10/23/2018 Active PEG [id number]-HtLzi-NaCl-NaSulf (PEG 3350/ELECTROLYTES) 240 g SOLR 0 10/09/2018 [...] age to complete this topic Care Teams Sleeping Car Porter Relationship Specialty Start Date End Date Oscar Quinn DO [address] [place] [address] [address] [place] [address] PCP - General Internal Medicine 10/01/18
== END 2024-10-02 12:39 | disposition home or self-care (01) ==
LOC: HO.HOS 12:19
PROVIDERS: PCP Internal Medicine; Visit Provider Orthopaedic Surgery
DX: M25.561 Pain in right knee (principal)
CPT/HCPCS: 99024

== ENCOUNTER → 2024-10-02 12:19 | Outpatient (BNVA) | payer MEDICARE, SELFPAY | PROVIDERS: PCP Internal Medicine; Visit Provider Orthopaedic Surgery | DX: M25.561 Pain in right knee (principal); Z47.1 Aftercare following joint replacement surgery; Z96.651 Presence of right artificial knee joint | CPT/HCPCS: 99212 ==

== ENCOUNTER 2025-01-01 13:22 | Outpatient (AMB) | payer MEDICARE, SELFPAY ==
--- NOTE | 2025-01-01 13:34 | MHC.OFFVIS ---
Vital Signs 01/01/25 13:46 Height 5 ft 8 in Weight 194 lb BMI 29.5 Intake Visit Reasons: OV: R TKA w/DR 08/25/24-3month follow up Intake Note: Bassem is a 74 year old male who presents for follow up after undergoing right total knee replacement surgery on 08/25/2024. He reports mild intermittent discomfort in his right knee. He denies any fevers or chills. He continues to ride his road bicycle for exercise. Allergies No Known Allergies Allergy (Verified 01/01/25 13:48) Medication List - Last Reconciled 01/01/25 by Compa Galaviz MD acetaminophen 650 mg (2 x 325 mg) PO Q6H PRN 30 days allopurinol 300 mg PO DAILY aspirin 325 mg PO BID 42 days celecoxib 200 mg PO BID 30 days chlorthalidone 12.5 mg PO QAM docusate sodium 100 mg PO BID 14 days finasteride 5 mg PO QAM gabapentin 100 mg PO BEDTIME 7 days losartan 75 mg PO QAM metformin ER 1,000 mg PO BID methocarbamol 500 mg PO BEDTIME 7 days metoprolol succinate ER 25 mg PO QPM multivitamin 1 tab PO QAM omeprazole 80 mg PO QAM pravastatin 80 mg PO BEDTIME semaglutide (Ozempic) 0.25 mg subcut MO tamsulosin 0.4 mg PO BEDTIME walker Folding front wheeled walker walker Folding front wheeled walker [facility] Medical History Schatzki ring of distal esophagus NAFLD (nonalcoholic fatty liver disease) BPH (benign prostatic hyperplasia) Renal calculi Osteoarthritis Diabetes GERD (gastroesophageal reflux disease) Elevated cholesterol HTN (hypertension) Surgical History Hx of lithotripsy History of surgical removal of pilonidal cyst History of appendectomy Hx of right inguinal hernia repair History of esophagogastroduodenoscopy (EGD) H/O colonoscopy Social History Household Members: Spouse Housing: House Are you a primary specialist wound care to a significant other at home: No Do you presently have visiting nurse or other home services: No Comment: aware of trip hazard Patient Tobacco Use Status: Former Tobacco user Tobacco use type: Cigarette Years Smoked: 6 service: No Physical Exam Vital Signs: BMI result Body Mass Index 29.5 Const Other: Well-nourished well-developed very friendly male awake alert and oriented x3 in no acute distress Extrem Other: Bilateral lower extremity examination shows good capillary refill, no skin lesions noted, normal sensation light touch Right knee examination shows that the surgical incision is well healed, no erythema, full active extension and flexion to 120 degrees, his patella tracks well Assessment & Plan Assessment & Plan (1) Right knee pain: Code(s): M25.561 - Pain in right knee Category: Medical Plan Mr. Cormier continues to do well after undergoing right total knee replacement surgery on 08/25/2024. Will continue with his exercise program. He does know to take antibiotics before any dental work. He will contact me prior to his follow-up appointment in 3 months should any questions or concerns arise. Feel free to call me at any time should questions regarding his orthopedic management arise. I spent 21 minutes in reviewing the patient's records and imaging studies, seeing the patient and documenting in the medical record. Coding Level of Care Code Est Pt Level 3 (28861) Complex EM visit Add On G2211 Diagnoses Right knee pain M25.561
[2025-01-01 13:46] VITALS: BMI 29.5
== END 2025-01-01 14:03 | disposition home or self-care (01) ==
LOC: HO.HOS 13:23
PROVIDERS: PCP Internal Medicine; Visit Provider Orthopaedic Surgery
DX: M25.561 Pain in right knee (principal)
CPT/HCPCS: 99213; G2211

== ENCOUNTER → 2025-01-01 13:22 | Outpatient (BNVA) | payer MEDICARE, SELFPAY | PROVIDERS: PCP Internal Medicine; Visit Provider Orthopaedic Surgery | DX: M25.561 Pain in right knee (principal); Z96.651 Presence of right artificial knee joint | CPT/HCPCS: 99212 ==

== ENCOUNTER 2025-04-02 08:28 | Outpatient (REF) | payer MEDICARE, SELFPAY ==
--- NOTE | ~2025-04-02 | XR_ITS ---
EXAMINATION: XR KNEE, RIGHT CLINICAL INFORMATION: M25.561 - Pain in right knee COMPARISON: X-ray 09/11/2024 TECHNIQUE: Three views of the right knee. FINDINGS: Status post right knee arthroplasty. Expected positioning and alignment. No hardware fracture. No suspicious perihardware lucencies. No acute fracture. No significant effusion. No abnormal soft tissue calcification. XR/XR knee RT 3V IMPRESSION: Right total knee arthroplasty. No acute osseous findings. Electronically signed by: Malvin Reyes MD 04/02/2025 02:51 PM EDT
--- OUTSIDE RECORDS SUMMARY | 2025-04-03 08:39 | XMS_ITS | Clinical Summary ---
Author Organization [facility] Address [address] [place] [address] Care Team Providers Care Tunnel Heading Supervisor Name Role Phone Oscar Quinn DO Primary Care Provider [phone] Allergies No known active allergies Medications Medication [...] 0.4 MG CAPS 0 10/23/2018 Active PEG 8140-ENs-SkXjb-NaCl-NaSulf (PEG 3350/ELECTROLYTES) 240 g SOLR 0 10/09/2018 [...] 1 - PCV) 2017 Influenza Vaccine (#1) 2025 RSV Adult > 60+ Yrs or Pregn ant (1 - 1-dose 75+ series) 2027 Hepatitis B Vaccines Aged Out No long er eligible based on patient's age to complete this topic RSV Ped < 20 months Aged Out No longe r eligible based on patient's age to complete this topic Care Teams Tunnel Heading Supervisor Relationship Specialty Start Date End Date Oscar Quinn DO [address] [place] [address] [address] [place] [address] PCP - General Internal Medicine 10/01/18
== END 2025-04-02 08:29 | disposition home or self-care (01) ==
LOC: HO.HOSX 08:28
PROVIDERS: Visit Provider Orthopaedic Surgery
DX: M25.561 Pain in right knee (principal); Z79.899 Other long term (current) drug therapy; Z96.651 Presence of right artificial knee joint
CPT/HCPCS: 73562; 99212

== ENCOUNTER 2025-04-02 13:22 | Outpatient (AMB) | payer MEDICARE, SELFPAY ==
[2025-04-02 13:53] VITALS: BMI 29.5
--- NOTE | 2025-04-02 13:53 | A.OFFVIS_ITS ---
Vital Signs 04/02/25 13:53 Height 5 ft 8 in Weight 194 lb BMI 29.5 Intake Visit Reasons: OV: R TKA w/ 08/25/24-3month follow up Intake Note: Bassem is a 74 year old man who presents today for a follow up visit after undergoing a right knee total arthroplasty on 08/25/2024. States he is doing well however he is experiencing some discomfort when twisting his knee, like wh en he steps out of his car. He continues to ride his bike for exercise. He denies any fevers or chills. He takes Tylenol as needed for his discomfort. Allergies No Known Allergies Allergy (Verified 04/02/25 13:56) Medication List - Last Reconciled 04/02/25 by Compa Galaviz MD acetaminophen 650 mg (2 x 325 mg) PO Q6H PRN 30 days allopurinol 300 mg PO DAILY aspirin 325 mg PO BID 42 days celecoxib 200 mg PO BID 30 days chlorthalidone 12.5 mg PO QAM docusate sodium 100 mg PO BID 14 days finasteride 5 mg PO QAM gabapentin 100 mg PO BEDTIME 7 days losartan 75 mg PO QAM metformin ER 1,000 mg PO BID methocarbamol 500 mg PO BEDTIME 7 days metoprolol succinate ER 25 mg PO QPM multivitamin 1 tab PO QAM omeprazole 80 mg PO QAM pravastatin 80 mg PO BEDTIME semaglutide (Ozempic) 0.25 mg subcut MO tamsulosin 0.4 mg PO BEDTIME walker Folding front wheeled walker walker Folding front wheeled walker [facility] Medical History Schatzki ring of distal esophagus NAFLD (nonalcoholic fatty liver disease) BPH (benign prostatic hyperplasia) Renal calculi Osteoarthritis Diabetes GERD (gastroesophageal reflux disease) Elevated cholesterol HTN (hypertension) Surgical History Hx of lithotripsy History of surgical removal of pilonidal cyst History of appendectomy Hx of right inguinal hernia repair History of esophagogastroduodenoscopy (EGD) H/O colonoscopy Social History Household Members: Spouse Housing: House Are you a primary career education teacher to a significant other at home: No Do you presently have visiting nurse or other home services: No Comment: aware of trip hazard Patient Tobacco Use Status: Former Tobacco user Tobacco use type: Cigarette Years Smoked: 6 service: No Physical Exam Vital Signs: BMI result Body Mass Index 29.5 Const Other: Well-nourished well-developed very friendly male awake alert and oriented x3 in no acute distress Extrem Other: Right knee examination shows that the surgical incision is well healed, no erythema, full active extension and flexion to 120 degrees, his patella tracks well Results Reviewed Results Reviewed: X-rays of the patient's right knee taken today show a total knee arthroplasty in good position with no signs of loosening, no acute bony abnormalities Assessment & Plan Assessment & Plan (1) Right knee pain: Code(s): M25.561 - Pain in right knee Category: Medical Plan Mr. Cormier continues to do very well after undergoing right total knee replacement surgery on 08/25/2024. He will continue with his home exercise program. He does know to take antibiotics before any dental work. He will contact me prior to his annual follow-up appointment should any questions or concerns arise. Feel free to call me at any time should questions regarding his orthopedic management arise. I spent 21 minutes in reviewing the patient's records and imaging studies, seeing the patient and documenting in the medical record. Orders: Orders XR knee RT 3V Today M25.561 - Pain in right knee Coding Level of Care Code Est Pt Level 3 (65861) Complex EM visit Add On G2211 Diagnoses Right knee pain M25.561
== END 2025-04-02 14:04 | disposition home or self-care (01) ==
LOC: HO.HOS 13:23
PROVIDERS: PCP Internal Medicine; Visit Provider Orthopaedic Surgery
DX: M25.561 Pain in right knee (principal)
CPT/HCPCS: 99213; G2211

== ENCOUNTER → 2025-04-02 13:46 | Outpatient (BNV) | payer MEDICARE, SELFPAY | PROVIDERS: Visit Provider Radiology Diagnostic Ultrasound | DX: M25.561 Pain in right knee (principal); Z96.651 Presence of right artificial knee joint | CPT/HCPCS: 73562 ==